=== PATIENT | female | born 1995 | race Caucasian/White ===

== ENCOUNTER 2020-01-16 15:09 | Emergency (ER) | payer SELFPAY ==
--- OUTSIDE RECORDS SUMMARY | 2020-01-16 15:12 | XMS REPORT | Continuity of Care Document ---
:1995 Author Organization [facility] Address [address] [place] [address] Care Team Providers Name Role Phone PHYSICIAN, NO Primary Care Physician Unavailable Allergies, Adverse Reactions, Alerts Allergen Type Severity Reaction Last Verified Status Updated No Known Allergy Unknown August 03, No Active Allergies 2013 Medications Medication Status Dose Units Route Sig Qty Days Start End Instruct ions Date Date Amitriptyline Active 10 ORAL Once Hcl Daily At Bedtim e Ascorbic Acid Active 1000 ORAL Daily Cetirizine-Pse Active 1 ORAL Twice 29 August udoephedrine * Daily , 2019 Needed 10:45pm as needed for Allerg ies Lorazepam Active 1 ORAL Twice 60 08 January Daily , 2019 Needed 12:07am as needed for Anxiet y Metformin Hcl Active 1 ORAL Twice 60 08 August A Day , for 2020 Type 2 1:02am Dm Azithromycin Discontin 500 ORAL Daily 3 July ued for , , Infect 2019 2019 ion 1:02am Ferrous Discontin 1 ORAL Once August Sulfate ued Daily 2019 Hydrocodone-Ac Discontin 1-2 ORAL Every 30 July Decembe etaminophen ued 4 Hrs 29th, r 5th, 5/325MG * As 2013 2015 Needed 7:13am For Pain for Pain Ibuprofen Discontin 400 ORAL Every 30 August ued 4 6th, 4th, Hours 2019 2019 As 10:45pm Needed for Pain Ibuprofen Discontin 1 ORAL Every 30 October ued 6 29th, 6th, Hours 2018 2019 As 7:14am Needed as needed for Pain Ibuprofen Discontin 1 ORAL Every 30 July Decembe ued 6 29th, r 5th, Hours 2013 2015 As 7:13am Needed as needed for Pain Insulin Discontin 10 SUBCUTAN Once Decembe Glargine ued EOUS Daily r 5th, At 2016 Bedtim e Insulin Human Discontin Decembe Nph ued r 5th, 2015 Insulin Human Discontin 0 SUBCUTAN Before Dece mbe Regular ued EOUS Meals r 5th, And At 2016 Bedtim e Discontin 1 ORAL Once August Multivit-Min ued Daily 6th, W/Fe-Fa * 2019 Tramadol/Apap Discontin 1 ORAL Every 15 5 July * ued 4-6 17th, 6th, Hours 2019 2019 As 1:02am Needed as needed for Pain Problems Active Problems Medical Problem Onset Date Status Threatened Active Abdominal pain in Active Urinary tract infection during Active Gestational diabetes mellitus, August 04, 2013 Active delivered Arrest of dilation, delivered, August 04, 2013 Active current hospitalization Acute infective gastroenteritis Active Upper respiratory infection Active Otitis media Active Yeast infection Active UTI (urinary tract infection) Active test positive Active 36 weeks gestation of Active Modified White class B Active pregestational diabetes mellitus Pre-eclampsia affecting childbirth Activ e LGA (large for gestational age) Active fetus affecting mother, delivered Non-reassuring electronic Active monitoring tracing 37 weeks gestation of Active Modified White class B Active pregestational diabetes mellitus Spontaneous onset of labor after 37 Acti ve but before 39 completed weeks gestation with delivery by planned section Previous , delivered, Active current hospitalization Previous delivery affecting Act dorothy , delivered Inactive/Resolved Problems Medical Problem Onset Date Status Gastroenteritis Resolved Abdominal pain Resolved Ear pain, left Resolved Otitis externa Resolved Asthma Resolved Otitis media of right ear Resolved URI (upper respiratory infection) Resolv ed Cervicitis and endocervicitis Resolved Abdominal pain during intrauterine Resol ziggy Chest wall pain Resolved Chest pain Resolved Uncontrolled diabetes mellitus Resolved Type 2 diabetes mellitus Resolved Pharyngitis Resolved URI (upper respiratory infection) Resolv ed Sinus congestion Resolved Headache Resolved Anxiety Resolved Chest pain Resolved Procedures Procedure Date Performed Status X-ray of chest, single view December 13, 2019 completed Relevant Diagnostic Tests and/or Laboratory Data Laboratory Results Test Date/Time Result Interpretation Reference Result Comment Performing Range Site White Blood Count December 8.3 4.0-11.5 [facility] , [address] [place] [id number] 11:32pm Red Blood Count December 4.90 3.80-5.20 [facility] , [address] [place] [address] 11:32pm Hemoglobin December 13.4 10.5-15.7 [facility], [address] [facility] [address] 2019 [facility] [place] [id number] 11:32pm Hematocrit December 42.3 34.0-50.0 [facility], [address] [facility] 2019 [facility] X [id number] 11:32pm Mean Corpuscular October 86.3 86-100 [facility], [address] [facility] Volume 2019 [facility] X [id number] 11:32pm Mean Corpuscular October 27.3 26.2-33.4 [facility], [address] [facility] [address] Hemoglobin [address] [place] [address] 11:32pm Mean Corpuscular October 31.7 30-34 [facility], [address] [facility] Hemoglobin 2019 [facility] [address] Concent 11:32pm Red Cell December 12.5 12.0-15.5 [facility], [address] [facility] Distribution [address] [place] [address] Width 11:32pm Platelet Count December 229 165-450 [facility], [address] [facility] 2019 [facility] X [address] 11:32pm Mean Platelet December 11.9 9.4-12.6 [facility], [address] [facility] Volume 2019 [facility] X [address] 11:32pm Neutrophils (%) December 57.0 44.4-80.1 [facility] , [address] [facility] [address] (Auto) 2019 [facility] X [id number] 11:32pm Immature December 0.4 0.0-0.4 [facility], [address] Granulocyte % 2019 [place] [address] (Auto) 11:32pm Lymphocytes (%) December 31.0 10.0-50.0 [facility] , [address] [facility] [address] (Auto) 2019 [facility] X [address] 11:32pm Monocytes (%) December 8.9 3.6-12.0 [facility], [address] [facility] [address] (Auto) 2019 [facility] X [address] 11:32pm Eosinophils (%) December 2.3 0.0-5.4 [facility] , [address] [facility] [address] (Auto) 2019 [facility] X [address] 11:32pm Basophils (%) December 0.4 0.1-1.2 [facility], [address] [facility] (Auto) 2019 [facility] X [address] 11:32pm Neutrophils # October 4.75 1.56-6.13 [facility], [address] [facility] [address] (Auto) 2019 [facility] X [address] 11:32pm Absolute Immature October 0.0 0.0-0.03 [facility] , [address] Granulocyte (auto 2019 [place] [address] 11:32pm Lymphocytes # December 2.6 1.18-3.74 [facility], [address] [facility] (Auto) 2019 [facility] X [id number] 11:32pm Monocytes # December 0.74 0.24-0.86 [facility], [address] [facility] [address] (Auto) 2019 [facility] X [address] 11:32pm Eosinophils # December 0.19 0.04-0.36 [facility], [address] [facility] (Auto) 2019 [facility] X [address] 11:32pm Basophils # December 0.03 0.01-0.08 [facility], 10 4 [facility] (Auto) 2019 [facility] X [address] 11:32pm Nucleated Red October 0 0-0.2 [facility], [address] [facility] Blood Cells % 2019 [facility] [address] 11:32pm Nucleated Red October 0 0 [facility], [address] [facility] Blood Cells # 2019 [facility] [address] 11:32pm Prothrombin Time December 10.0 10.3-12.3 [facility], [address] [facility] 2019 LEVEL: 1.5 [address] [place] [address] 11:32pm 1.9 times normal range of PT Prothromb Time December 0.93 Recommended [facility], [address] [facility] International 2019 therapeutic [facility] [address] Ratio 11:32pm range for patients receiving warfarin (coumadin) therapy: INR is 2.0 to 3.0Recommended range for patients with mechanical prosthetic heart valves: INR is 2.5 to 3.5 Activated Partial December 25.4 22.5-37.0 [facility] , [address] [facility] Thromboplast Time 2019 [place] [address] 11:32pm Random Glucose December 191 74-106 [facility], [address] [facility] 2019 [facility] X [address] 11:32pm Blood Urea December 12 6-20 [facility], [address] [facility] Nitrogen 2019 [facility] X [address] 11:32pm Serum Osmolality December 277 280-300 [facility], [address] [facility] 2019 [facility] X [address] 11:32pm Creatinine October 0.6 0.50-0.90 [facility], 104 2019 [facility] X [address] 11:32pm Glomerular October > 60.00 GFR RESULTS ARE [facility], [address] [facility] Filtration Rate 2019 REPORTED [place] [address] Calc 11:32pm mL/min/1.73m2.N ormal GFR: >60mL/minModera tely decreased GFR: 30-59 mL/minSeverely decreased GFR: 15-29 mL/minKidney Failure (or Dialysis): <15 mL/minThe calculated eGFR is not valid for patients younger than 18 years or older than 75 years. BUN/Creatinine December 20.0 12-20 [facility], [address] [place] [address] 2019 [facility] X [address] 11:32pm Sodium Level December 136 135-145 [facility], 1 04 2019 [facility] X [address] 11:32pm Potassium Level December 3.8 3.5-5.2 [facility] , [address] [facility] 2019 [facility] X [address] 11:32pm Chloride Level December 100 98-108 [facility], [address] [facility] 2019 [facility] X [address] 11:32pm Carbon Dioxide December 24 21-32 [facility], [address] [place] [address] 2019 [facility] X [address] 11:32pm Anion Gap December 15.8 12-20 [facility], [address] [place], [place] [address] [facility] X [address] 11:32pm Calcium Level December 9.7 8.6-10.0 [facility], [address] [facility] 2019 [facility] X [address] 11:32pm Total Protein October 7.8 6.6-8.7 [facility], [address] [facility] 2019 [facility] X [address] 11:32pm Albumin October 4.3 3.5-5.2 [facility], [address] [facility] 2019 [facility] X [address] 11:32pm Globulin October 3.5 [facility], [address] [place], [place] [address] [facility] X [address] 11:32pm Albumin/Globulin October 1.2 >1.0 [facility], [address] [place] [address] 2019 [facility] X [address] 11:32pm Total Bilirubin October 0.3 0.0-1.2 [facility] , [address] [facility] 2019 [facility] X [address] 11:32pm Aspartate Amino December 23 15-32 [facility] , [address] Transf (AST/SGOT) 2019 [facility] [address] 11:32pm Alanine December 43 0-33 [facility], 104 Aminotransferase 2019 [facility] [address] (ALT/SGPT) 11:32pm PO-Sxm-U-Type December 6 0-125 [facility], 104 Natriuretic 2019 [place] [address] Peptide 11:32pm Total Alkaline December 106 35-105 [facility], 104 Phosphatase 2019 [place] [id number] 11:32pm Creatine Kinase December 32 20-180 [facility] , [address] [facility] 2019 [facility] X 668[address] 11:32pm Troponin I December < 0.30 0.0-0.5 Published [facility], [address] [facility] 2019 clinical [facility] X [address]98 11:32pm studies have shown elevations of cTnI in patients with myocardial injury, as seen in unstable angina pectoris, cardiac contusions, and heart transplants. Elevations have also been seen in patients with rhabdomyolysis and polymyositis.El evated troponin levels point to myocardial injury, but are not necessarily indicative of an ischemic mechanism. The term OK should be used when there is evidence of cardiac damage, as detected by marker proteins in a clinical setting consistent with myocardial ischemia. If the clinical circumstance suggests that an ischemic mechanism is unlikely, other causes of cardiac injury should be considered.For diagnostic purposes, the results should always be assessed in conjunction with the patient's medical history, clinical examination and other findings. Creatine Kinase December < 1.0 0.0-3.6 DIAGNOSTIC [facility], 104 [facility] 2019 CITERIA: [facility] X [id number] 11:32pm CKMB CKMB RELATIVE INDEX -----SUGGESTIVE OF NON-AMI < or = 5 N/AGRAY ZONE (INCONCLUSIVE) > 5 < or = 4SUGGESTIVE OF AMI >5 > 4 Health Concerns Health Concerns may be documented in an alternate section. Advance Directives Advance Directive Response Recorded Date/Time Advance Directives No July 02, 2015 7:5 3pm Advance Directive on File No December 12, 2 020 11:13pm Directive to Physicians/Living No June 7:53pm Will Health Care Proxy No July 02, 2015 7:5 3pm Organ Donor No July 02, 2015 7:5 3pm Medical Power of Furnace [place] No July 01 7:53pm Chief Complaint and Reason for Visit Chief Complaint Chest Pain Reason for Visit [id number] Encounters Encounter Location(s) Arrival/Admit Date Discharge/Depart Date Provider(s) Departed [place] December 13, 2019 December 14, 2019 MYA CAVAZOS Emergency Room [facility] 11:07pm 12:52am MD Ctr Assessments No Assessments Information Available Functional Status No Functional Status information available Goals Goals may be documented in an alternate section. Immunizations Immunization Event Date Not Given Dose Meat Pumper Lot Vac cine Reason Number Number Informatio n Statement (VIS) Deta il TDaP October 10 [place] PS [id number] 2018 Mental Status No Mental Status Information Available Medical Equipment No Medical Equipment Information available Insurance Providers Guarantor Danny Mora Address [address] [place] [id number] Contact Info. Home Phone: Payer Policy Id Coverage Id Subscriber's Subscriber Id Effective E xpiration Name Date Date Medicaid [id number] Danny Mora [id number] Plan of Treatment CALL MD FOR FOLLOW UP ON SUNDAY FOR FURTHER TREATMENT RETURN TO ER IF WORSE Future Tests Future scheduled test information is unavailable Pending Tests Test Name Date ordered Urine Color December 13, 2019 11:25pm Urine Appearance December 13, 2019 11:25pm Urine Glucose (UA) December 13, 2019 11:25pm Urine Bilirubin December 13, 2019 11:25pm Urine Ketones December 13, 2019 11:25pm Urine Specific Morrison December 13, 2019 11:25pm Urine Blood December 13, 2019 11:25pm Urine pH December 13, 2019 11:25pm Urine Protein December 13, 2019 11:25pm Urine Urobilinogen December 13, 2019 11:25pm Urine Nitrate December 13, 2019 11:25pm Urine Leukocyte Esterase December 13, 2019 11:25pm Urine RBC December 13, 2019 11:25pm Urine WBC December 13, 2019 11:25pm Urine Bacteria December 13, 2019 11:25pm Urine Culture Reflexed December 13, 2019 11:25pm Urine Amphetamines Screen December 13, 2019 11:25pm Urine Barbiturates, Quantitative December 13, 2019 11: 25pm Urine Benzodiazepines Screen December 13, 2019 11:25pm Urine Cannabinoids December 13, 2019 11:25pm Urine Cocaine Metabolite December 13, 2019 11:25pm Urine Opiates Screen December 13, 2019 11:25pm Urine Phencyclidine (PCP) Level December 13, 2019 11:2 5pm Methadone Level December 13, 2019 11:25pm Propoxyphene Level December 13, 2019 11:25pm Oxycodone Level December 13, 2019 11:25pm Urine Drug Screen Note December 13, 2019 11:25pm Hepatitis B Surface Antigen February 11, 2016 4:11pm Future Visits Future appointment information is unavailable Referrals to Other Providers Reason for Referral Start Provider Provider Contact Provider Address Referral Date Information PHYSICIAN, NO Future Procedures Future procedure information is unavailable Future Medications Future medication information is unavailable Patient Instructions Nonspecific Chest Pain, Adult Managing Anxiety, Adult Social History Smoking Status Status Date of Observation Never smoked tobacco (finding) December 13, 2019 11:13 pm Observation Status Observation Response Date of Response Hx Physical Abuse No December 13, 2019 11 :13pm Assigned Sex Female Vital Signs Vital Reading Result Collection Date/Time Weight 220 [lb_av] December 13, 2019 11 :13pm BMI (Body Mass Index) 46.0 kg/m2 December 13, 2019 11:13pm
--- OUTSIDE RECORDS SUMMARY | 2020-01-16 15:12 | XMS REPORT | Continuity of Care Document ---
:1995 [facility] t Address [address] [place] [address] Care Team Providers Name Role Phone OEI Attending Clinician Unavailable OEI Admitting Clinician Unavailable Problems Condition Condition Condition Status Onset Resolution Last Treating Co mments Source Name Details Category Date Date Treatment Clinician Date Candidiasi Candidiasi Problem Active 2019-1 [facility] s of skin s of Skin 0-04 da 00:00: Medical 00 Group Initiation Initiation Problem Active 2019-1 [facility] of [place] of [place]ot 0-04 da contracept Contracept 00:00: Me dical ion done ion Done 00 Group Type 2 Type 2 Problem Active [facility] diabetes Diabetes 11-26 da mellitus Mellitus 00:00: Medica l 00 Group Acute Acute Problem Active [facility] cystitis Cystitis 11-26 da 00:00: Medical 00 Group Problem Active [facility] depression Depression 11-26 da 00:00: Medical 00 Group Decreased Decreased Problem Active [facility] 11-26 da 00:00: Medical Group Candidal Candidal Problem Active [facility] vulvovagin Vulvovagin 2- da itis itis 00:00: Medical Group History of History of Problem Active [facility] pre-eclamp Pre-eclamp 2- da primo primo 00:00: Medical 00 Group Pre-existi Pre-existi Problem Active [facility] ng type 2 ng Type 2 da diabetes Diabetes Medica l mellitus Mellitus Group in in Uterine Uterine Problem Active [facility] scar from Scar from da previous Previous Medica l surgery in Surgery in Gr oup , , childbirth Childbirth and the and the puerperium Puerperium with with problem Problem Allergies, Adverse Reactions, Alerts This patient has no known allergies or adverse reactions. Social History Smoking Status Start Date Stop Date Source Never Smoker [facility] Medications Ordered Filled Start Stop Current Ordering Indication Dosage Frequency Signature Comments Components Source Medication Medication Date Date Medication? Clinician (SIG) Name Name acetaminoph acetaminoph No acetaminop [facility] en 300 en 300 hen 300 da mg-codeine mg-codeine mg-codeine Medical 30 mg 30 mg 30 mg Group tablet 1-2 tablet 1-2 tablet 1-2 p.o. q 6 p.o. q 6 p.o. q 6 hrs PRN hrs PRN hrs PRN pain pain pain Aspirin Low Aspirin Low No 1 Q1D Aspirin [facility] Dose 81 mg Dose 81 mg Low Dose da tablet,ras tablet,ras 81 mg Medical yed release yed release tablet,del Group Take 1 Take 1 ayed tablet tablet release every day every day Take 1 by oral by oral tablet route. route. every day by oral route. citalopram citalopram No 1 Q1D citalopram [facility] 20 mg 20 mg 20 mg da tablet Take tablet Take tablet Medical 1 tablet 1 tablet Take 1 Group every day every day tablet by oral by oral every day route. route. by oral route. ferrous ferrous No 1 Q1D ferrous [facility] gluconate gluconate gluconate da 240 mg (27 240 mg (27 240 mg (27 Medical mg iron) mg iron) mg iron) Manuel up tablet Take tablet Take tablet 1 tablet 1 tablet Take 1 every day every day tablet by oral by oral every day route. route. by oral route. fluconazole fluconazole No fluconazol [facility] 100 mg 100 mg e 100 mg da tablet Take tablet Take tablet Medical 1 tablet 1 tablet Take 1 Group every day every day tablet by oral by oral every day route for 3 route for 3 by oral days. days. route for 3 days. fluconazole fluconazole No fluconazol [facility] 200 mg 200 mg e 200 mg da tablet Take tablet Take tablet Medical 1 tablet 1 tablet Take 1 Group every day every day tablet by oral by oral every day route for 3 route for 3 by oral days. days. route for 3 days. glyburide glyburide No glyburide [facility] 2.5 mg 2.5 mg 2.5 mg da tablet Take tablet Take tablet Medical 1 tablet 1 tablet Take 1 Group twice a day twice a day tablet by oral by oral twice a route with route with day by meals. meals. oral route with meals. glyburide 5 glyburide 5 No glyburide [facility] mg tablet mg tablet 5 mg da Take 1 Take 1 tablet Medical tablet tablet Take 1 Group twice a day twice a day tablet by oral by oral twice a route. route. day by oral route. ibuprofen ibuprofen No ibuprofen [facility] 800 mg 800 mg 800 mg da tablet tablet tablet Medical Group metronidazo metronidazo No metronidaz [facility] le 500 mg le 500 mg ole 500 mg da tablet Take tablet Take tablet Medical 1 tablet 1 tablet Take 1 Group twice a day twice a day tablet by oral by oral twice a route for 7 route for 7 day by days. days. oral route for 7 days. nitrofurant nitrofurant No nitrofuran [facility] oin oin toin da monohydrate monohydrate monohydrat Medical /macrocryst /macrocryst e/macrocry Group als 100 mg als 100 mg stals 100 capsule capsule mg capsule Take 1 Take 1 Take 1 capsule capsule capsule twice a day twice a day twice a by oral by oral day by route for 5 route for 5 oral route days. days. for 5 days. nystatin nystatin No nystatin [facility] 100,000 100,000 100,000 da unit/gram unit/gram unit/gram Medical topical topical topical Group cream APPLY cream APPLY cream TO THE TO THE APPLY TO AFFECTED AFFECTED THE AREA(S) BY AREA(S) BY AFFECTED TOPICAL TOPICAL AREA(S) BY ROUTE 2 ROUTE 2 TOPICAL TIMES PER TIMES PER ROUTE 2 DAY for 10 DAY for 10 TIMES PER days. days. DAY for 10 days. omeprazole omeprazole No omeprazole [facility] 40 mg 40 mg 40 mg da capsule,del capsule,del capsule,de Medical ayed ayed layed Group release release release No [facility] Gummy Gummy Gummy da Medical Group Reglan 10 Reglan 10 No 1 QID Reglan 10 [facility] mg tablet mg tablet mg tablet da Take 1 Take 1 Take 1 Medical tablet 4 tablet 4 tablet 4 Manuel up times a day times a day times a by oral by oral day by route for route for oral route 14 days. 14 days. for 14 days. True Metrix True Metrix No True [facility] Glucose Glucose Metrix da Meter Meter Glucose Medical Meter Group True Metrix True Metrix No True [facility] Glucose Glucose Metrix da Test Strip Test Strip Glucose Medical Test Strip Group Vitafol-One Vitafol-One No 1capsul Q1D Vitafol-On [facility] 29 mg 29 mg e(s) e 29 mg da iron-1 iron-1 iron-1 Medical mg-200 mg mg-200 mg mg-200 mg Group capsule capsule capsule Take 1 Take 1 Take 1 capsule capsule capsule every day every day every day by oral by oral by oral route at route at route at bedtime. bedtime. bedtime. Vital Signs Vital Name Observation Time Observation Value Comments Source BP Diastolic 2018-12-13 00:00:00 75 mm[Hg] [facility] Height 2018-12-13 00:00:00 58 [facility] BMI (Body Mass 2018-12-13 00:00:00 42.2 kg/m2 [facility] Medical Index) Group BP Systolic 2018-12-13 00:00:00 120 mm[Hg] [facility] Body Weight 2018-12-13 00:00:00 202 [lb_av] [facility] BP Diastolic 2018-11-26 00:00:00 71 mm[Hg] [facility] Height 2018-11-26 00:00:00 58 [in_i] [facility] BMI (Body Mass 2018-11-26 00:00:00 41.2 kg/m2 [facility] Medical Index) Group BP Systolic 2018-11-26 00:00:00 129 mm[Hg] [facility] Body Weight 2018-11-26 00:00:00 197.3 [lb_av] [facility] BP Diastolic 2018-11-05 00:00:00 92 mm[Hg] [facility] Height 2018-11-05 00:00:00 58 [in_i] [facility] BMI (Body Mass 2018-11-05 00:00:00 45.1 kg/m2 [facility] Medical Index) Group BP Systolic 2018-11-05 00:00:00 126 mm[Hg] [facility] Body Weight 2018-11-05 00:00:00 215.9 [lb_av] [facility] BP Diastolic 2018-10-29 00:00:00 88 mm[Hg] [facility] Height 2018-10-29 00:00:00 58 [in_i] [facility] BMI (Body Mass 2018-10-29 00:00:00 45.2 kg/m2 [facility] Medical Index) Group BP Systolic 2018-10-29 00:00:00 128 mm[Hg] [facility] Body Weight 2018-10-29 00:00:00 216.1 [lb_av] [facility] BP Diastolic 2018-10-15 00:00:00 81 mm[Hg] [facility] Height 2018-10-15 00:00:00 58 [in_i] [facility] BMI (Body Mass 2018-10-15 00:00:00 43.8 kg/m2 [facility] Medical Index) Group BP Systolic 2018-10-15 00:00:00 128 mm[Hg] [facility] Body Weight 2018-10-15 00:00:00 209.4 [lb_av] [facility] BP Diastolic 2018-09-30 00:00:00 75 mm[Hg] [facility] Height 2018-09-30 00:00:00 58 [in_i] [facility] BMI (Body Mass 2018-09-30 00:00:00 43.5 kg/m2 [facility] Medical Index) Group BP Systolic 2018-09-30 00:00:00 122 mm[Hg] [facility] Body Weight 2018-09-30 00:00:00 208 [lb_av] [facility] BP Diastolic 2018-09-13 00:00:00 73 mm[Hg] [facility] Height 2018-09-13 00:00:00 58 [in_i] [facility] BMI (Body Mass 2018-09-13 00:00:00 43.2 kg/m2 [facility] Medical Index) Group BP Systolic 2018-09-13 00:00:00 123 mm[Hg] [facility] Body Weight 2018-09-13 00:00:00 206.6 [lb_av] [facility] BP Diastolic 2018-08-30 00:00:00 78 mm[Hg] [facility] Height 2018-08-30 00:00:00 58 [in_i] [facility] BMI (Body Mass 2018-08-30 00:00:00 43.3 kg/m2 [facility] Medical Index) Group BP Systolic 2018-08-30 00:00:00 133 mm[Hg] [facility] Body Weight 2018-08-30 00:00:00 207 [lb_av] [facility] BP Diastolic 2018-08-16 00:00:00 74 mm[Hg] [facility] Height 2018-08-16 00:00:00 58 [in_i] [facility] BMI (Body Mass 2018-08-16 00:00:00 43.8 kg/m2 [facility] Medical Index) Group BP Systolic 2018-08-16 00:00:00 125 mm[Hg] [facility] Body Weight 2018-08-16 00:00:00 209.8 [lb_av] [facility] BP Diastolic 2018-06-10 00:00:00 75 mm[Hg] [facility] Height 2018-06-10 00:00:00 58 [in_i] [facility] BMI (Body Mass 2018-06-10 00:00:00 42.2 kg/m2 [facility] Medical Index) Group BP Systolic 2018-06-10 00:00:00 136 mm[Hg] [facility] Body Weight 2018-06-10 00:00:00 202 [lb_av] [facility] BP Diastolic 2018-05-17 00:00:00 77 mm[Hg] [facility] Height 2018-05-17 00:00:00 58 [in_i] [facility] BMI (Body Mass 2018-05-17 00:00:00 42.2 kg/m2 [facility] Index) Group BP Systolic 2018-05-17 00:00:00 128 mm[Hg] [facility] Body Weight 2018-05-17 00:00:00 202 [lb_av] [facility] BP Diastolic 2018-05-02 00:00:00 79 mm[Hg] [facility] Height 2018-05-02 00:00:00 58 [in_i] [facility] BMI (Body Mass 2018-05-02 00:00:00 42 kg/m2 [facility] Medical Index) Group BP Systolic 2018-05-02 00:00:00 165 mm[Hg] [facility] Body Weight 2018-05-02 00:00:00 201 [lb_av] [facility] Procedures Procedure Date / Time Performing Clinician Source Performed US(FBP)W/0 NON STRESS 2018-11-05 00:00:00 [facility] TEST Group US, obstetric, limited 2018-10-29 00:00:00 [facility] US, obstetric, limited 2018-09-30 00:00:00 [facility] ULTRASOUND REPEAT 2018-08-30 00:00:00 [facility] unlisted imaging order 2018-08-16 00:00:00 [facility] US, obstetric, limited 2018-06-10 00:00:00 [facility] ULTRASOUND, 2018-06-10 00:00:00 [facility] UTERUS REAL TIME WITH Group IMAGE DOC, AND MATERNAL EVAL PLUS DETAILED ANATOMIC EXAMINATION, TRANSABDOMINAL APPROACH; SINGLE OR FIRST GESTATION US, obstetric, limited 2018-05-17 00:00:00 [facility] ULTRASOUND, 2018-05-02 00:00:00 [facility] UTERUS REAL TIME WITH Group IMAGE DOCUMENTAITON, TRANSVAGINAL Delivery 2016-02-11 00:00:00 [facility] Caesarean Section 2013-08-04 00:00:00 [facility] Plan of Care Planned Activity Planned Date Details Comments Source Diagnostic Test 2018-12-13 test, [facility] Pending 00:00:00 urine [code = Group test, urine] Encounters Start End Encounter Admission Attending Care Care Encounter Source Date/Time Date/Time Type Type Clinicians Facility Department ID 2018-12-13 2018-12-13 Linda ALFARO [place] - [id number] [facility] 00:00:00 00:00:00 Discovery trevor Forrester WHNP: [address] [place] [phone] , Ph. [phone] 2018-11-26 2018-11-26 Chase AL[place]ARO [place] - [id number] [facility] 00:00:00 00:00:00 [facility] trevor Buckley MD: [address] [place] [address] , Ph. [phone] 2018-11-05 2018-11-05 Chase ALFARO [place] - [id number] [facility] 00:00:00 00:00:00 [facility] trevor Buckley MD: [address] [place] [address] , Ph. [phone] 2018-10-29 2018-10-29 Chase ALFARO [place] - [id number] [facility] 00:00:00 00:00:00 Discovery trevor Buckley MD: [address] [place] [address] , Ph. [phone] 2018-10-15 2018-10-15 Linda Swenson [facility] [place] - [id number] [place] 00:00:00 00:00:00 Discovery Timothy Forrester: [facility] [address] [address] , Ph. [phone] 2018-09-30 2018-09-30 Lin FLOWERS [place] - [id number] [facility] 00:00:00 00:00:00 Subhash Sapp [facility] l MD: [address] [place] [phone] , Ph. [phone] 2018-09-13 2018-09-13 Chase ALFARO [place] - [id number] [facility] 00:00:00 00:00:00 Discovery rtevor Buckley MD: [address] [place] [phone] , Ph. [phone] 2018-08-30 2018-08-30 Chase ALFARO [place] - [id number] [facility] 00:00:00 00:00:00 Discovery trevor Buckley MD: [address] [place] [phone] , Ph. [phone] 2018-08-16 2018-08-16 Linda Swenson [place] - [id number] [place] 00:00:00 00:00:00 Discovery Timothy Forrester: [facility] [address] [address], [place] [address] , Ph. [phone] 2018-06-10 2018-06-10 Lin ALFARO [place] - [id number] [facility] 00:00:00 00:00:00 Subhash Sapp [facility] l MD: [address] [place] [address] , Ph. [phone] 2018-05-17 2018-05-17 Chase ALFARO [place] - [id number] [facility] 00:00:00 00:00:00 Discovery trevor Buckley MD: [address] [place] [address], [place] - [address], [place] [address] , Ph. [phone] 2018-05-02 2018-05-02 Chase ALFARO [place] - [id number] [facility] 00:00:00 00:00:00 Discovery trevor Buckley MD: [address] [place] [address], [facility] [address], [place] [address] , Ph. [phone] 2017-10-19 2017-10-19 Emergency E OEI, [facility] [id number] 16:41:00 17:20:00 [facility] Results Test Description Test Time Test Comments Results Result Comments Source test, urine 2018-12-13 15:26:12 Test Item Value Reference Range Interpretation Comme nts Test (test code = Test) negative [facility] (dipstick) panel - [id number] 14:39:00 Test Item Value Reference Range Interpretation Comments Leukocytes (test code = Leukocytes) Moderate Nitrite (test code = Nitrite) negative Urobilinogen (test code = .2 Urobilinogen) Protein (test code = Protein) Negative pH (test code = pH) 7.0 Blood (test code = Blood) Moderate Specific [place] (test code = 1.020 Specific [place]) Ketone (test code = Ketone) Negative Bilirubin (test code = Bilirubin) Negative Glucose (test code = Glucose) Negative Appearance (test code = Appearance) Clear Color (test code = Color) Yellow [facility] macro (dipstick) panel - [id number] 14:39:00 Test Item Value Reference Range Interpretation Comments Leukocytes (test code = Leukocytes) Moderate Nitrite (test code = Nitrite) negative Urobilinogen (test code = .2 Urobilinogen) Protein (test code = Protein) Negative pH (test code = pH) 7.0 Blood (test code = Blood) Moderate Specific [place] (test code = 1.020 Specific [place]) Ketone (test code = Ketone) Negative Bilirubin (test code = Bilirubin) Negative Glucose (test code = Glucose) Negative Appearance (test code = Appearance) Clear Color (test code = Color) Yellow [facility] identified in Urine by [id number] 01:17:00Bacteria Ur [facility] W Auto Differential panel - [id number] 03:00:00 Test Item Value Reference Range Interpretation Comments white blood count (test code = 9.1 K/uL 4.0-11.5 white blood count) red blood count (test code = red 3.09 M/uL 3.80-5.20 L blood count) hemoglobin (test code = 8.7 g/dL 10.5-15.7 L hemoglobin) hematocrit (test code = 27.9 % 34.0-50.0 L hematocrit) Erythrocyte mean corpuscular 90.3 fL 86-100 volume [Entitic volume] (test code = 36652-1) mean corpuscular hemoglobin (test 28.2 pg 26.2-33.4 code = mean corpuscular hemoglobin) mean corpuscular HGB conc (test 31.2 g/dL 30-34 code = mean corpuscular HGB conc) red cell distribution width (test 14.9 % 12.0-15.5 code = red cell distribution width) platelet count (test code = 127 K/uL 165-450 L platelet count) mean platelet volume (test code = 12.2 fL 9.4-12.6 mean platelet volume) Neutrophils.segmented/100 72.4 % 44.4-80.1 leukocytes in Blood (test code = 60174-2) Ig% (test code = Ig%) 0.3 % 0.0-0.4 lymphocyte% (test code = 18.6 % 10.0-50.0 lymphocyte%) mono % (test code = mono %) 7.8 % 3.6-12.0 eos % (test code = eos %) 0.7 % 0.0-5.4 Basophils/100 leukocytes in 0.2 % 0.1-1.2 Unspecified specimen (test code = 99161-9) absolute neutrophil count (test 6.61 K/uL 1.56-6.13 H code = absolute neutrophil count) Ig# (test code = Ig#) 0.0 K/uL 0.0-0.03 Lymphocytes [#/volume] in 1.7 K/uL 1.18-3.74 Unspecified specimen by Automated count (test code = 87941-2) mono # (test code = mono #) 0.71 K/uL 0.24-0.86 eos # (test code = eos #) 0.06 K/uL 0.04-0.36 basophil # (test code = basophil 0.02 K/uL 0.01-0.08 #) NRBC% (test code = NRBC%) 0 /100 WBC 0-0.2 NRBC# (test code = NRBC#) 0 K/uL [facility] W Auto Differential panel - [id number] 04:26:00 Test Item Value Reference Range Interpretation Comments white blood count (test code = 11.2 K/uL 4.0-11.5 white blood count) red blood count (test code = red 3.34 M/uL 3.80-5.20 L blood count) hemoglobin (test code = 9.5 g/dL 10.5-15.7 L hemoglobin) hematocrit (test code = 29.5 % 34.0-50.0 L hematocrit) Erythrocyte mean corpuscular 88.3 fL 86-100 volume [Entitic volume] (test code = 51072-8) mean corpuscular hemoglobin (test 28.4 pg 26.2-33.4 code = mean corpuscular hemoglobin) mean corpuscular HGB conc (test 32.2 g/dL 30-34 code = mean corpuscular HGB conc) red cell distribution width (test 14.5 % 12.0-15.5 code = red cell distribution width) platelet count (test code = 131 K/uL 165-450 L platelet count) mean platelet volume (test code = 12.5 fL 9.4-12.6 mean platelet volume) Neutrophils.segmented/100 80.7 % 44.4-80.1 H leukocytes in Blood (test code = 39115-3) Ig% (test code = Ig%) 0.5 % 0.0-0.4 H lymphocyte% (test code = 11.1 % 10.0-50.0 lymphocyte%) mono % (test code = mono %) 7.5 % 3.6-12.0 eos % (test code = eos %) 0 % 0.0-5.4 Basophils/100 leukocytes in 0.2 % 0.1-1.2 Unspecified specimen (test code = 47837-7) absolute neutrophil count (test 9.01 K/uL 1.56-6.13 H code = absolute neutrophil count) Ig# (test code = Ig#) 0.1 K/uL 0.0-0.03 H Lymphocytes [#/volume] in 1.2 K/uL 1.18-3.74 Unspecified specimen by Automated count (test code = 26648-7) mono # (test code = mono #) 0.84 K/uL 0.24-0.86 eos # (test code = eos #) 0.00 K/uL 0.04-0.36 L basophil # (test code = basophil 0.02 K/uL 0.01-0.08 #) NRBC% (test code = NRBC%) 0 /100 WBC 0-0.2 NRBC# (test code = NRBC#) 0 K/uL [facility] and Indirect antibody screen panel - Blood 2018-11-05 12:58:00 Test Item Value Reference Range Interpretation Comments Rh [Type] in Blood (test code = 4+ 18498-9) ABO and Rh group panel - Blood A positive (test code = 49257-3) [facility] virus surface Ag [Presence] in Serum 2018-11-05 12:58:00 Test Item Value Reference Range Interpretation Comments .hepatitis B surface antigen (test negative negative code = .hepatitis B surface antigen) [facility]Reagin Ab [Presence] in Serum by [id number] 12:58:00 Test Item Value Reference Range Interpretation Comments Reagin Ab [Presence] in Serum by nonreactive nonreactive RPR (test code = 05848-8) [facility]inalysis macro (dipstick) panel - [id number] 10:13:00 Test Item Value Reference Range Interpretation Comments Leukocytes (test code = Trace Leukocytes) Nitrite (test code = negative Nitrite) Urobilinogen (test code = .2 Urobilinogen) Protein (test code = Negative Protein) pH (test code = pH) 6.0 Blood (test code = Blood) Hemolyzed: Trace Specific [place] (test code 1.025 = Specific [place]) Ketone (test code = Ketone) Moderate Bilirubin (test code = Negative Bilirubin) Glucose (test code = Negative Glucose) Appearance (test code = Clear Appearance) Color (test code = Color) Yellow [facility]inalysis macro (dipstick) panel - [id number] 10:13:00 Test Item Value Reference Range Interpretation Comments Leukocytes (test code = Trace Leukocytes) Nitrite (test code = negative Nitrite) Urobilinogen (test code = .2 Urobilinogen) Protein (test code = Negative Protein) pH (test code = pH) 6.0 Blood (test code = Blood) Hemolyzed: Trace Specific [place] (test code 1.025 = Specific [place]) Ketone (test code = Ketone) Moderate Bilirubin (test code = Negative Bilirubin) Glucose (test code = Negative Glucose) Appearance (test code = Clear Appearance) Color (test code = Color) Yellow [facility] HospitalGlucose [Mass/volume] in Capillary [id number] 10:11:00 Test Item Value Reference Range Interpretation Comments GLU (test code = GLU) 97 [facility]Glucose [Mass/volume] in Capillary [id number] 10:11:00 Test Item Value Reference Range Interpretation Comments GLU (test code = GLU) 97 [facility] Biophysical profile panel [id number] 09:48:00 Test Item Value Reference Range Interpretation Comments Amniotic Fluid Index (test code = 2 (14.4) Amniotic Fluid Index) Tone (test code = Tone) 2 Breathing (test code = 2 Breathing) Movement (test code = 2 Movement) Non-Stress Test (test code = 2 Non-Stress Test) [facility] [id number] 09:48:00 Test Item Value Reference Range Interpretation Comments Amniotic Fluid Index (test code = 2 (14.4) Amniotic Fluid Index) Tone (test code = Tone) 2 Breathing (test code = 2 Breathing) Movement (test code = 2 Movement) Non-Stress Test (test code = 2 Non-Stress Test) [facility] Auto Differential panel - [id number] 09:41:00 Test Item Value Reference Range Interpretation Comments white blood count (test code = 6.8 K/uL 4.0-11.5 white blood count) red blood count (test code = red 4.27 M/uL 3.80-5.20 blood count) hemoglobin (test code = 11.8 g/dL 10.5-15.7 hemoglobin) hematocrit (test code = 36.8 % 34.0-50.0 hematocrit) Erythrocyte mean corpuscular 86.2 fL 86-100 volume [Entitic volume] (test code = 75940-6) mean corpuscular hemoglobin (test 27.6 pg 26.2-33.4 code = mean corpuscular hemoglobin) mean corpuscular HGB conc (test 32.1 g/dL 30-34 code = mean corpuscular HGB conc) red cell distribution width (test 14.5 % 12.0-15.5 code = red cell distribution width) platelet count (test code = 152 K/uL 165-450 L platelet count) mean platelet volume (test code = 12.9 fL 9.4-12.6 H mean platelet volume) Neutrophils.segmented/100 71.7 % 44.4-80.1 leukocytes in Blood (test code = 94854-8) Ig% (test code = Ig%) 0.1 % 0.0-0.4 lymphocyte% (test code = 18.3 % 10.0-50.0 lymphocyte%) mono % (test code = mono %) 9.0 % 3.6-12.0 eos % (test code = eos %) 0.6 % 0.0-5.4 Basophils/100 leukocytes in 0.3 % 0.1-1.2 Unspecified specimen (test code = 25652-2) absolute neutrophil count (test 4.84 K/uL 1.56-6.13 code = absolute neutrophil count) Ig# (test code = Ig#) 0.0 K/uL 0.0-0.03 Lymphocytes [#/volume] in 1.2 K/uL 1.18-3.74 Unspecified specimen by Automated count (test code = 13367-0) mono # (test code = mono #) 0.61 K/uL 0.24-0.86 eos # (test code = eos #) 0.04 K/uL 0.04-0.36 basophil # (test code = basophil 0.02 K/uL 0.01-0.08 #) NRBC% (test code = NRBC%) 0 /100 WBC 0-0.2 NRBC# (test code = NRBC#) 0 K/uL [facility]dipstick[facility] - [id number] 10:55:43 Test Item Value Reference Range Interpretation Comments Leukocytes (test code = Leukocytes) Small Nitrite (test code = Nitrite) negative Urobilinogen (test code = .2 Urobilinogen) Protein (test code = Protein) Negative pH (test code = pH) 7.0 Blood (test code = Blood) Negative Specific [place] (test code = 1.015 Specific [place]) Ketone (test code = Ketone) Trace Bilirubin (test code = Bilirubin) Negative Glucose (test code = Glucose) Negative Appearance (test code = Appearance) Clear Color (test code = Color) Yellow [facility] panel - [id number] 10:55:43 Test Item Value Reference Range Interpretation Comments Leukocytes (test code = Leukocytes) Small Nitrite (test code = Nitrite) negative Urobilinogen (test code = .2 Urobilinogen) Protein (test code = Protein) Negative pH (test code = pH) 7.0 Blood (test code = Blood) Negative Specific [place] (test code = 1.015 Specific [place]) Ketone (test code = Ketone) Trace Bilirubin (test code = Bilirubin) Negative Glucose (test code = Glucose) Negative Appearance (test code = Appearance) Clear Color (test code = Color) Yellow [facility]stick[facility] panel - [id number] 10:55:43 Test Item Value Reference Range Interpretation Comments Leukocytes (test code = Leukocytes) Small Nitrite (test code = Nitrite) negative Urobilinogen (test code = .2 Urobilinogen) Protein (test code = Protein) Negative pH (test code = pH) 7.0 Blood (test code = Blood) Negative Specific [place] (test code = 1.015 Specific [place]) Ketone (test code = Ketone) Trace Bilirubin (test code = Bilirubin) Negative Glucose (test code = Glucose) Negative Appearance (test code = Appearance) Clear Color (test code = Color) Yellow [facility]Gl[facility] [Mass/volume] in Capillary [id number] 10:49:07 Test Item Value Reference Range Interpretation Comments GLU (test code = GLU) 73 [facility]Gl[facility] [Mass/volume] in Capillary [id number] 10:49:07 Test Item Value Reference Range Interpretation Comments GLU (test code = GLU) 73 [facility]Gl[facility] [Mass/volume] in Capillary [id number] 10:49:07 Test Item Value Reference Range Interpretation Comments GLU (test code = GLU) 73 [facility] complete panel - [id number] 00:00:00 Test Item Value Reference Range Interpretation Comments Color of Urine by Auto (test code yellow = 73455-8) Appearance of Urine (test code = SL cloudy clear A 5767-9) Glucose [Presence] in Urine by negative negative Automated test strip (test code = 29974-7) Bilirubin.total [Mass/volume] in negative negative Urine (test code = 1978-6) Ketones [Mass/volume] in Urine by =3 negative H Automated test strip (test code = 81633-9) Specific gravity of Urine by 1.025 1.003-1.030 Automated test strip (test code = 46372-8) blood urine (test code = blood negative negative urine) pH of Urine (test code = 2756-5) 6.000 5-9 protein urine (UA) (test code = trace negative protein urine (UA)) Urobilinogen [Presence] in Urine =2.0 0.2-1.0 H (test code = 83409-3) Nitrite [Presence] in Urine by negative negative Test strip (test code = 5802-4) Leukocyte esterase [Presence] in =4 negative H Urine by Automated test strip (test code = 77150-6) Erythrocytes [#/volume] in Urine =1-5 0-5 by Automated count (test code = 798-9) Leukocytes [#/area] in Urine >50 0-5 H sediment by Automated count (test code = 42633-2) Epithelial cells [Presence] in =6-10 0-5 Urine sediment by Light microscopy (test code = 90311-6) Bacteria identified in Urine by moderate (2 none detect H Culture (test code = 630-4) Casts [#/area] in Urine sediment =15-19 none detect H by Automated count (test code = 85991-9) urine culture added? (test code = yes urine culture added?) [facility] by [id number] 00:00:00[facility]acteria Ur [facility] Urine 2018-10-26 00:00:00 Test Item Value Reference Range Interpretation Comments Color of Urine by Auto (test code yellow = 76930-3) Appearance of Urine (test code = SL cloudy clear A 5767-9) Glucose [Presence] in Urine by negative negative Automated test strip (test code = 14301-5) Bilirubin.total [Mass/volume] in negative negative Urine (test code = 1978-6) Ketones [Mass/volume] in Urine by =3 negative H Automated test strip (test code = 89518-9) Specific gravity of Urine by 1.025 1.003-1.030 Automated test strip (test code = 89061-4) blood urine (test code = blood negative negative urine) pH of Urine (test code = 2756-5) 6.000 5-9 protein urine (UA) (test code = trace negative protein urine (UA)) Urobilinogen [Presence] in Urine =2.0 0.2-1.0 H (test code = 19946-3) Nitrite [Presence] in Urine by negative negative Test strip (test code = 5802-4) Leukocyte esterase [Presence] in =4 negative H Urine by Automated test strip (test code = 30648-4) Erythrocytes [#/volume] in Urine =1-5 0-5 by Automated count (test code = 798-9) Leukocytes [#/area] in Urine >50 0-5 H sediment by Automated count (test code = 67566-3) Epithelial cells [Presence] in =6-10 0-5 Urine sediment by Light microscopy (test code = 02875-8) Bacteria identified in Urine by moderate (2 none detect H Culture (test code = 630-4) Casts [#/area] in Urine sediment =15-19 none detect H by Automated count (test code = 61571-3) urine culture added? (test code = yes urine culture added?) [facility] GroupBacteria identified in Urine by [id number] 00:00:00Bacteria Ur [facility] GroupUr[facility] complete [facility] - Urine 2018-10-26 00:00:00 Test Item Value Reference Range Interpretation Comments Color of Urine by Auto (test code yellow = 44950-9) Appearance of Urine (test code = SL cloudy clear A 5767-9) Glucose [Presence] in Urine by negative negative Automated test strip (test code = 17841-3) Bilirubin.total [Mass/volume] in negative negative Urine (test code = 1978-6) Ketones [Mass/volume] in Urine by =3 negative H Automated test strip (test code = 43934-5) Specific gravity of Urine by 1.025 1.003-1.030 Automated test strip (test code = 42581-2) blood urine (test code = blood negative negative urine) pH of Urine (test code = 2756-5) 6.000 5-9 protein urine (UA) (test code = trace negative protein urine (UA)) Urobilinogen [Presence] in Urine =2.0 0.2-1.0 H (test code = 50491-7) Nitrite [Presence] in Urine by negative negative Test strip (test code = 5802-4) Leukocyte esterase [Presence] in =4 negative H Urine by Automated test strip (test code = 98474-9) Erythrocytes [#/volume] in Urine =1-5 0-5 by Automated count (test code = 798-9) Leukocytes [#/area] in Urine >50 0-5 H sediment by Automated count (test code = 30243-9) Epithelial cells [Presence] in =6-10 0-5 Urine sediment by Light microscopy (test code = 21782-1) Bacteria identified in Urine by moderate (2 none detect H Culture (test code = 630-4) Casts [#/area] in Urine sediment =15-19 none detect H by Automated count (test code = 03468-8) urine culture added? (test code = yes urine culture added?) [facility] GroupBacteria identified in Urine by [id number] 00:00:00Bacteria Ur [facility] GroupUrinalysis macro (dipstick) panel - [id number] 16:26:33 Test Item Value Reference Range Interpretation Comments Leukocytes (test code = Leukocytes) Trace Nitrite (test code = Nitrite) negative Urobilinogen (test code = .2 Urobilinogen) Protein (test code = Protein) Negative pH (test code = pH) 6.0 Blood (test code = Blood) Negative Specific [place] (test code = 1.020 Specific [place]) Ketone (test code = Ketone) Moderate Bilirubin (test code = Bilirubin) Negative Glucose (test code = Glucose) Negative Appearance (test code = Appearance) Clear Color (test code = Color) Yellow [facility]Ur[facility] macro (dipstick) panel - [id number] 16:26:33 Test Item Value Reference Range Interpretation Comments Leukocytes (test code = Leukocytes) Trace Nitrite (test code = Nitrite) negative Urobilinogen (test code = .2 Urobilinogen) Protein (test code = Protein) Negative pH (test code = pH) 6.0 Blood (test code = Blood) Negative Specific [place] (test code = 1.020 Specific [place]) Ketone (test code = Ketone) Moderate Bilirubin (test code = Bilirubin) Negative Glucose (test code = Glucose) Negative Appearance (test code = Appearance) Clear Color (test code = Color) Yellow [facility]Ur[facility] macro (dipstick) panel - [id number] 16:26:33 Test Item Value Reference Range Interpretation Comments Leukocytes (test code = Leukocytes) Trace Nitrite (test code = Nitrite) negative Urobilinogen (test code = .2 Urobilinogen) Protein (test code = Protein) Negative pH (test code = pH) 6.0 Blood (test code = Blood) Negative Specific [place] (test code = 1.020 Specific [place]) Ketone (test code = Ketone) Moderate Bilirubin (test code = Bilirubin) Negative Glucose (test code = Glucose) Negative Appearance (test code = Appearance) Clear Color (test code = Color) Yellow [facility] HospitalHemoglobin A1c [Mass/volume] in [id number] 02:58:00 Test Item Value Reference Range Interpretation Comments Hemoglobin A1c [Mass/volume] in Blood 5.9 % 4.0-6.0 (test code = 60142-7) [facility] GroupHemoglobin A1c [Mass/volume] in [id number] 00:00:00 Test Item Value Reference Range Interpretation Comments Hemoglobin A1c [Mass/volume] in Blood 5.9 % 4.0-6.0 (test code = 04055-1) [facility] GroupHemoglobin A1c [Mass/volume] in [id number] 00:00:00 Test Item Value Reference Range Interpretation Comments Hemoglobin A1c [Mass/volume] in Blood 5.9 % 4.0-6.0 (test code = 58998-3) [facility] GroupColony count [#/volume] in [id number] 00:00:00 Test Item Value Reference Range Interpretation Comments group B streptococcus (gbs) by negative real-time PCR (test code = group B streptococcus (gbs) by real-time PCR) escherichia coli by real-time PCR negative (test code = escherichia coli by real-time PCR) proteus mirabilis by real-time PCR negative (test code = proteus mirabilis by real-time PCR) staphylococcus saprophyticus by negative real-time PCR (test code = staphylococcus saprophyticus by real-time PCR) enterococcus faecalis by real-time negative PCR (test code = enterococcus faecalis by real-time PCR) enterococcus faecium by real-time negative PCR (test code = enterococcus faecium by real-time PCR) klebsiella species by real-time PCR negative (reflex to speciation by pyrosequencing) (test code = klebsiella species by real-time PCR (reflex to speciation by pyrosequencing)) pseudomonas aeruginosa by real-time negative PCR (test code = pseudomonas aeruginosa by real-time PCR) [facility] GroupCol[facility] count [#/volume] in [id number] 00:00:00 Test Item Value Reference Range Interpretation Comments group B streptococcus (gbs) by negative real-time PCR (test code = group B streptococcus (gbs) by real-time PCR) escherichia coli by real-time PCR negative (test code = escherichia coli by real-time PCR) proteus mirabilis by real-time PCR negative (test code = proteus mirabilis by real-time PCR) staphylococcus saprophyticus by negative real-time PCR (test code = staphylococcus saprophyticus by real-time PCR) enterococcus faecalis by real-time negative PCR (test code = enterococcus faecalis by real-time PCR) enterococcus faecium by real-time negative PCR (test code = enterococcus faecium by real-time PCR) klebsiella species by real-time PCR negative (reflex to speciation by pyrosequencing) (test code = klebsiella species by real-time PCR (reflex to speciation by pyrosequencing)) pseudomonas aeruginosa by real-time negative PCR (test code = pseudomonas aeruginosa by real-time PCR) [facility] - [id number] 07:22:00 Test Item Value Reference Range Interpretation Comments Color of Urine by Auto (test code yellow = 99082-1) Appearance of Urine (test code = clear clear 5767-9) Glucose [Presence] in Urine by trace (50 negative Automated test strip (test code = 33036-0) Bilirubin.total [Mass/volume] in negative negative Urine (test code = 1978-6) Ketones [Mass/volume] in Urine by =1 negative H Automated test strip (test code = 30465-9) Specific gravity of Urine by 1.023 1.003-1.030 Automated test strip (test code = 45645-7) blood urine (test code = blood negative negative urine) pH of Urine (test code = 2756-5) 6.000 5-9 protein urine (UA) (test code = trace negative protein urine (UA)) Urobilinogen [Presence] in Urine normal 0.2-1.0 (test code = 47819-4) Nitrite [Presence] in Urine by negative negative Test strip (test code = 5802-4) Leukocyte esterase [Presence] in =1 negative H Urine by Automated test strip (test code = 86769-8) Erythrocytes [#/volume] in Urine <1 0-5 by Automated count (test code = 798-9) Leukocytes [#/area] in Urine =1-5 0-5 sediment by Automated count (test code = 04603-4) Epithelial cells [Presence] in =11-14 0-5 Urine sediment by Light microscopy (test code = 05592-7) Bacteria identified in Urine by moderate (2 none detect H Culture (test code = 630-4) Casts [#/area] in Urine sediment =6-10 none detect H by Automated count (test code = 36929-7) urine culture added? (test code = yes urine culture added?) path casts,U (test code = path none seen none detect casts,U) [facility] Urine by [id number] 07:22:00Bacteria Ur [facility] - Urine 2018-09-18 07:22:00 Test Item Value Reference Range Interpretation Comments Color of Urine by Auto (test code yellow = 05486-5) Appearance of Urine (test code = clear clear 5767-9) Glucose [Presence] in Urine by trace (50 negative Automated test strip (test code = 21017-5) Bilirubin.total [Mass/volume] in negative negative Urine (test code = 1978-6) Ketones [Mass/volume] in Urine by =1 negative H Automated test strip (test code = 32743-1) Specific gravity of Urine by 1.023 1.003-1.030 Automated test strip (test code = 03618-2) blood urine (test code = blood negative negative urine) pH of Urine (test code = 2756-5) 6.000 5-9 protein urine (UA) (test code = trace negative protein urine (UA)) Urobilinogen [Presence] in Urine normal 0.2-1.0 (test code = 38838-4) Nitrite [Presence] in Urine by negative negative Test strip (test code = 5802-4) Leukocyte esterase [Presence] in =1 negative H Urine by Automated test strip (test code = 16296-7) Erythrocytes [#/volume] in Urine <1 0-5 by Automated count (test code = 798-9) Leukocytes [#/area] in Urine =1-5 0-5 sediment by Automated count (test code = 09075-3) Epithelial cells [Presence] in =11-14 0-5 Urine sediment by Light microscopy (test code = 64826-3) Bacteria identified in Urine by moderate (2 none detect H Culture (test code = 630-4) Casts [#/area] in Urine sediment =6-10 none detect H by Automated count (test code = 21127-7) urine culture added? (test code = yes urine culture added?) path casts,U (test code = path none seen none detect casts,U) [facility] Urine by [id number] 07:22:00Bacteria Ur [facility]ville[facility] [Mass/volume] in Capillary [id number] 09:53:57 Test Item Value Reference Range Interpretation Comments GLU (test code = GLU) 97 [facility]Gl[facility] [Mass/volume] in Capillary [id number] 09:53:57 Test Item Value Reference Range Interpretation Comments GLU (test code = GLU) 97 [facility]Ur[facility] macro (dipstick) panel - [id number] 09:53:17 Test Item Value Reference Range Interpretation Comments Leukocytes (test code = Leukocytes) Negative Nitrite (test code = Nitrite) negative Urobilinogen (test code = .2 Urobilinogen) Protein (test code = Protein) Negative pH (test code = pH) 6.5 Blood (test code = Blood) Negative Specific [place] (test code = 1.015 Specific [place]) Ketone (test code = Ketone) Small Bilirubin (test code = Bilirubin) Negative Glucose (test code = Glucose) Negative Appearance (test code = Appearance) Clear Color (test code = Color) Yellow [facility]Ur[facility] (dipstick) panel - [id number] 09:53:17 Test Item Value Reference Range Interpretation Comments Leukocytes (test code = Leukocytes) Negative Nitrite (test code = Nitrite) negative Urobilinogen (test code = .2 Urobilinogen) Protein (test code = Protein) Negative pH (test code = pH) 6.5 Blood (test code = Blood) Negative Specific [place] (test code = 1.015 Specific [place]) Ketone (test code = Ketone) Small Bilirubin (test code = Bilirubin) Negative Glucose (test code = Glucose) Negative Appearance (test code = Appearance) Clear Color (test code = Color) Yellow [facility] complete panel - [id number] 00:00:00 Test Item Value Reference Range Interpretation Comments Color of Urine by Auto (test code = yellow 35046-1) Appearance of Urine (test code = clear clear 5767-9) Glucose [Presence] in Urine by negative negative Automated test strip (test code = 04375-9) Bilirubin.total [Mass/volume] in negative negative Urine (test code = 1978-6) Ketones [Mass/volume] in Urine by =2 negative H Automated test strip (test code = 20485-0) Specific gravity of Urine by 1.017 1.003-1.030 Automated test strip (test code = 97618-0) blood urine (test code = blood negative negative urine) pH of Urine (test code = 2756-5) 6.500 5-9 protein urine (UA) (test code = negative negative protein urine (UA)) Urobilinogen [Presence] in Urine normal 0.2-1.0 (test code = 60604-0) Nitrite [Presence] in Urine by Test negative negative strip (test code = 5802-4) Leukocyte esterase [Presence] in =2 negative H Urine by Automated test strip (test code = 33787-5) Erythrocytes [#/volume] in Urine by =1-5 0-5 Automated count (test code = 798-9) Leukocytes [#/area] in Urine =15-19 0-5 H sediment by Automated count (test code = 78314-7) Epithelial cells [Presence] in Urine =6-10 0-5 sediment by Light microscopy (test code = 04296-8) Bacteria identified in Urine by small(1 none detect Culture (test code = 630-4) Casts [#/area] in Urine sediment by =6-10 none detect H Automated count (test code = 61696-6) urine culture added? (test code = yes urine culture added?) [facility] identified in Urine by [id number] 00:00:00Bacteria Ur [facility]antib[facility] sensitivity testing, [id number] 00:00:00 Test Item Value Reference Range Interpretation Comments Gentamicin [Susceptibility] by <4 Minimum inhibitory concentration (MANDO) (test code = 267-5) Cefazolin [Susceptibility] by <8 Minimum inhibitory concentration (MANDO) (test code = 76-0) Oxacillin [Susceptibility] by 0.5 ug/mL Minimum inhibitory concentration (MANDO) (test code = 383-0) Penicillin [Susceptibility] by >8 Minimum inhibitory concentration (MANDO) (test code = 6932-8) Trimethoprim+Sulfamethoxazole =0.5 [Susceptibility] by Minimum inhibitory concentration (MANDO) (test code = 516-5) Tetracycline [Susceptibility] by <4 Minimum inhibitory concentration (MANDO) (test code = 496-0) Nitrofurantoin [Susceptibility] by <32 Minimum inhibitory concentration (MANDO) (test code = 363-2) Vancomycin [Susceptibility] by 1 ug/mL Minimum inhibitory concentration (MANDO) (test code = 524-9) Levofloxacin [Susceptibility] by <2 Minimum inhibitory concentration (MANDO) (test code = 03962-0) Ceftriaxone [Susceptibility] by <8 Minimum inhibitory concentration (MANDO) (test code = 141-2) Linezolid [Susceptibility] by 2 ug/mL Minimum inhibitory concentration (MANDO) (test code = 31148-5) Daptomycin [Susceptibility] by <0.5 Minimum inhibitory concentration (MANDO) (test code = 90740-3) Rifampin [Susceptibility] by <1 Minimum inhibitory concentration (MANDO) (test code = 428-3) [facility] GroupUrinalysis complete panel - [id number] 00:00:00 Test Item Value Reference Range Interpretation Comments Color of Urine by Auto (test code = yellow 49466-3) Appearance of Urine (test code = clear clear 5767-9) Glucose [Presence] in Urine by negative negative Automated test strip (test code = 81811-1) Bilirubin.total [Mass/volume] in negative negative Urine (test code = 1978-6) Ketones [Mass/volume] in Urine by =2 negative H Automated test strip (test code = 32971-1) Specific gravity of Urine by 1.017 1.003-1.030 Automated test strip (test code = 59476-4) blood urine (test code = blood negative negative urine) pH of Urine (test code = 2756-5) 6.500 5-9 protein urine (UA) (test code = negative negative protein urine (UA)) Urobilinogen [Presence] in Urine normal 0.2-1.0 (test code = 88612-4) Nitrite [Presence] in Urine by Test negative negative strip (test code = 5802-4) Leukocyte esterase [Presence] in =2 negative H Urine by Automated test strip (test code = 87778-8) Erythrocytes [#/volume] in Urine by =1-5 0-5 Automated count (test code = 798-9) Leukocytes [#/area] in Urine =15-19 0-5 H sediment by Automated count (test code = 74670-6) Epithelial cells [Presence] in Urine =6-10 0-5 sediment by Light microscopy (test code = 61758-8) Bacteria identified in Urine by small(1 none detect Culture (test code = 630-4) Casts [#/area] in Urine sediment by =6-10 none detect H Automated count (test code = 69102-9) urine culture added? (test code = yes urine culture added?) [facility] Urine by [id number] 00:00:00Bacteria Ur [facility] Groupantibiotic sensitivity testing, [id number] 00:00:00 Test Item Value Reference Range Interpretation Comments Gentamicin [Susceptibility] by <4 Minimum inhibitory concentration (MANDO) (test code = 267-5) Cefazolin [Susceptibility] by <8 Minimum inhibitory concentration (MANDO) (test code = 76-0) Oxacillin [Susceptibility] by 0.5 ug/mL Minimum inhibitory concentration (MANDO) (test code = 383-0) Penicillin [Susceptibility] by >8 Minimum inhibitory concentration (MANDO) (test code = 6932-8) Trimethoprim+Sulfamethoxazole =0.5 [Susceptibility] by Minimum inhibitory concentration (MANDO) (test code = 516-5) Tetracycline [Susceptibility] by <4 Minimum inhibitory concentration (MANDO) (test code = 496-0) Nitrofurantoin [Susceptibility] by <32 Minimum inhibitory concentration (MANDO) (test code = 363-2) Vancomycin [Susceptibility] by 1 ug/mL Minimum inhibitory concentration (MANDO) (test code = 524-9) Levofloxacin [Susceptibility] by <2 Minimum inhibitory concentration (MANDO) (test code = 41202-9) Ceftriaxone [Susceptibility] by <8 Minimum inhibitory concentration (MANDO) (test code = 141-2) Linezolid [Susceptibility] by 2 ug/mL Minimum inhibitory concentration (MANDO) (test code = 66895-2) Daptomycin [Susceptibility] by <0.5 Minimum inhibitory concentration (MANDO) (test code = 76845-7) Rifampin [Susceptibility] by <1 Minimum inhibitory concentration (MANDO) (test code = 428-3) [facility] in Capillary [id number] 16:03:13 Test Item Value Reference Range Interpretation Comments GLU (test code = GLU) 131 [facility]Gl[facility] [Mass/volume] in Capillary [id number] 16:03:13 Test Item Value Reference Range Interpretation Comments GLU (test code = GLU) 131 [facility] HospitalUrinalysis macro (dipstick) panel - [id number] 15:59:10 Test Item Value Reference Range Interpretation Comments Leukocytes (test code = Leukocytes) Trace Nitrite (test code = Nitrite) negative Urobilinogen (test code = .2 Urobilinogen) Protein (test code = Protein) Trace pH (test code = pH) 6.0 Blood (test code = Blood) Negative Specific [place] (test code = 1.030 Specific [place]) Ketone (test code = Ketone) Negative Bilirubin (test code = Bilirubin) Negative Glucose (test code = Glucose) 100 Appearance (test code = Appearance) Clear Color (test code = Color) Yellow [facility] HospitalUrinalysis macro (dipstick) panel - [id number] 15:59:10 Test Item Value Reference Range Interpretation Comments Leukocytes (test code = Leukocytes) Trace Nitrite (test code = Nitrite) negative Urobilinogen (test code = .2 Urobilinogen) Protein (test code = Protein) Trace pH (test code = pH) 6.0 Blood (test code = Blood) Negative Specific [place] (test code = 1.030 Specific [place]) Ketone (test code = Ketone) Negative Bilirubin (test code = Bilirubin) Negative Glucose (test code = Glucose) 100 Appearance (test code = Appearance) Clear Color (test code = Color) Yellow [facility] HospitalHemoglobin A1c [Mass/volume] in [id number] 02:35:00 Test Item Value Reference Range Interpretation Comments Hemoglobin A1c in Blood (test code = 5.6 % 4.0-6.0 55275-9) [facility] HospitalCB W Auto Differential panel - [id number] 00:00:00 Test Item Value Reference Range Interpretation Comments white blood count (test code = 9.5 K/uL 4.0-11.5 white blood count) red blood count (test code = red 4.11 M/uL 3.80-5.20 blood count) Hemoglobin [Mass/volume] in Blood 11.7 g/dL 10.5-15.7 (test code = 718-7) hematocrit (test code = hematocrit) 36.5 % 34.0-50.0 Erythrocyte mean corpuscular volume 88.9 fL 78-98 [Entitic volume] (test code = 78669-1) Erythrocyte mean corpuscular 28.4 pg 26.2-33.4 hemoglobin [Entitic mass] (test code = 96473-4) mean corpuscular HGB conc (test 31.9 g/dL 31.5-36.2 code = mean corpuscular HGB conc) red cell distribution width (test 12.7 % 11.5-15.5 code = red cell distribution width) Platelets [#/volume] in Blood (test 161 K/uL 137-338 code = 74405-9) Platelet mean volume [Entitic 9.8 fL 8.4-11.8 volume] in Blood (test code = 23703-3) Neutrophils.band form/100 73.0 % 44.4-80.1 leukocytes in Blood (test code = 81550-1) Lymphocytes/100 leukocytes in Body 18.5 % 10.0-50.0 fluid (test code = 34988-0) Monocytes/100 leukocytes in Blood 7.0 % 3.6-12.0 by Automated count (test code = 5905-5) Eosinophils/100 leukocytes in Blood 1.1 % 0.0-5.4 by Automated count (test code = 713-8) Basophils/100 leukocytes in 0.4 % 0.0-0.79 Unspecified specimen (test code = 19247-9) [facility] GroupHemoglobin A1c [Mass/volume] in [id number] 00:00:00 Test Item Value Reference Range Interpretation Comments Hemoglobin A1c in Blood (test code = 5.6 % 4.0-6.0 24177-9) [facility] GroupBlood [facility] antibody screen [Presence] in Serum or Plasma 2018-08-30 00:00:00 Test Item Value Reference Range Interpretation Comments Blood group antibody screen negative [Presence] in Serum or Plasma (test code = 890-4) [facility] GroupHIV 1+2 Ab [Presence] in [id number] 00:00:00HIV P24 AgHIV-1/2 AbMatagorda Medical GroupReagin Ab [Presence] in Serum by RPR 2018-08-30 00:00:00 Test Item Value Reference Range Interpretation Comments Reagin Ab [Presence] in Serum by nonreactive nonreactive RPR (test code = 48900-0) [facility] GroupGlucose [Mass/volume] in Capillary [id number] 14:18:00 Test Item Value Reference Range Interpretation Comments GLU (test code = GLU) 50mg/dL [facility] GroupGlucose [Mass/volume] in Capillary [id number] 14:18:00 Test Item Value Reference Range Interpretation Comments GLU (test code = GLU) 50mg/dL [facility] GroupGlucose [Mass/volume] in Capillary [id number] 14:18:00 Test Item Value Reference Range Interpretation Comments GLU (test code = GLU) 50mg/dL [facility] HospitalUrinalysis macro (dipstick) panel - [id number] 14:02:40 Test Item Value Reference Range Interpretation Comments Leukocytes (test code = Leukocytes) Trace Nitrite (test code = Nitrite) negative Urobilinogen (test code = .2 Urobilinogen) Protein (test code = Protein) Negative pH (test code = pH) 6.0 Blood (test code = Blood) Negative Specific [place] (test code = 1.015 Specific [place]) Ketone (test code = Ketone) Negative Bilirubin (test code = Bilirubin) Negative Glucose (test code = Glucose) Negative Appearance (test code = Appearance) Clear Color (test code = Color) Yellow [facility] HospitalUrinalysis macro (dipstick) panel - [id number] 14:02:40 Test Item Value Reference Range Interpretation Comments Leukocytes (test code = Leukocytes) Trace Nitrite (test code = Nitrite) negative Urobilinogen (test code = .2 Urobilinogen) Protein (test code = Protein) Negative pH (test code = pH) 6.0 Blood (test code = Blood) Negative Specific [place] (test code = 1.015 Specific [place]) Ketone (test code = Ketone) Negative Bilirubin (test code = Bilirubin) Negative Glucose (test code = Glucose) Negative Appearance (test code = Appearance) Clear Color (test code = Color) Yellow [facility] GroupUrinalysis macro (dipstick) panel - [id number] 14:02:40 Test Item Value Reference Range Interpretation Comments Leukocytes (test code = Leukocytes) Trace Nitrite (test code = Nitrite) negative Urobilinogen (test code = .2 Urobilinogen) Protein (test code = Protein) Negative pH (test code = pH) 6.0 Blood (test code = Blood) Negative Specific [place] (test code = 1.015 Specific [place]) Ketone (test code = Ketone) Negative Bilirubin (test code = Bilirubin) Negative Glucose (test code = Glucose) Negative Appearance (test code = Appearance) Clear Color (test code = Color) Yellow [facility] GroupUrinalysis complete panel - [id number] 01:45:00 Test Item Value Reference Range Interpretation Comments Color of Urine by Auto (test colorless code = 13327-8) Appearance of Urine (test code clear clear = 5767-9) Glucose [Presence] in Urine by negative negative Automated test strip (test code = 96095-4) Bilirubin.total [Mass/volume] negative negative in Urine (test code = 1978-6) Ketones [Mass/volume] in Urine negative negative by Automated test strip (test code = 52922-6) Specific gravity of Urine by 1.004 1.003-1.030 Automated test strip (test code = 35338-1) blood urine (test code = blood =2 negative H urine) pH of Urine (test code = 6.500 5-9 2756-5) protein urine (UA) (test code = negative negative protein urine (UA)) Urobilinogen [Presence] in normal 0.2-1.0 Urine (test code = 40401-2) Nitrite [Presence] in Urine by negative negative Test strip (test code = 5802-4) Leukocyte esterase [Presence] negative negative in Urine by Automated test strip (test code = 56615-9) Erythrocytes [#/volume] in <1 0-5 Urine by Automated count (test code = 798-9) Leukocytes [#/area] in Urine =1-5 0-5 sediment by Automated count (test code = 82324-8) Epithelial cells [Presence] in =1-5 0-5 Urine sediment by Light microscopy (test code = 26452-0) Bacteria identified in Urine by none detected none detect Culture (test code = 630-4) Casts [#/area] in Urine none detected none detect sediment by Automated count (test code = 80928-0) urine culture added? (test code no = urine culture added?) [facility] HospitalUrinalysis complete panel - [id number] 01:45:00 Test Item Value Reference Range Interpretation Comments Color of Urine by Auto (test colorless code = 74481-8) Appearance of Urine (test code clear clear = 5767-9) Glucose [Presence] in Urine by negative negative Automated test strip (test code = 14056-1) Bilirubin.total [Mass/volume] negative negative in Urine (test code = 1978-6) Ketones [Mass/volume] in Urine negative negative by Automated test strip (test code = 75534-9) Specific gravity of Urine by 1.004 1.003-1.030 Automated test strip (test code = 55884-9) blood urine (test code = blood =2 negative H urine) pH of Urine (test code = 6.500 5-9 2756-5) protein urine (UA) (test code = negative negative protein urine (UA)) Urobilinogen [Presence] in normal 0.2-1.0 Urine (test code = 17359-9) Nitrite [Presence] in Urine by negative negative Test strip (test code = 5802-4) Leukocyte esterase [Presence] negative negative in Urine by Automated test strip (test code = 05483-7) Erythrocytes [#/volume] in <1 0-5 Urine by Automated count (test code = 798-9) Leukocytes [#/area] in Urine =1-5 0-5 sediment by Automated count (test code = 03661-1) Epithelial cells [Presence] in =1-5 0-5 Urine sediment by Light microscopy (test code = 01807-3) Bacteria identified in Urine by none detected none detect Culture (test code = 630-4) Casts [#/area] in Urine none detected none detect sediment by Automated count (test code = 22891-3) urine culture added? (test code no = urine culture added?) [facility] HospitalChlamydia trachomatis+Neisseria gonorrhoeae DNA [Presence] in Cervix by Probe and target amplification [id number] 11:47:00 ResultsMataField Memorial Community HospitalGlucose [Mass/volume] in Capillary [id number] 09:28:11 Test Item Value Reference Range Interpretation Comments GLU (test code = GLU) 107 [facility] HospitalGlucose [Mass/volume] in Capillary [id number] 09:28:11 Test Item Value Reference Range Interpretation Comments GLU (test code = GLU) 107 [facility] HospitalUrinalysis macro (dipstick) panel - [id number] 09:25:55 Test Item Value Reference Range Interpretation Comments Leukocytes (test code = Leukocytes) Negative Nitrite (test code = Nitrite) negative Urobilinogen (test code = .2 Urobilinogen) Protein (test code = Protein) Negative pH (test code = pH) 7.0 Blood (test code = Blood) Negative Specific [place] (test code = 1.020 Specific [place]) Ketone (test code = Ketone) Negative Bilirubin (test code = Bilirubin) Negative Glucose (test code = Glucose) Negative Appearance (test code = Appearance) Clear Color (test code = Color) Yellow [facility] HospitalUrinalysis macro (dipstick) panel - [id number] 09:25:55 Test Item Value Reference Range Interpretation Comments Leukocytes (test code = Leukocytes) Negative Nitrite (test code = Nitrite) negative Urobilinogen (test code = .2 Urobilinogen) Protein (test code = Protein) Negative pH (test code = pH) 7.0 Blood (test code = Blood) Negative Specific [place] (test code = 1.020 Specific [place]) Ketone (test code = Ketone) Negative Bilirubin (test code = Bilirubin) Negative Glucose (test code = Glucose) Negative Appearance (test code = Appearance) Clear Color (test code = Color) Yellow [facility] HospitalMicroscopic observation [Identifier] in Cervix by Cyto stain.thin [id number] 00:00:00ResultsMatagoSt. Dominic HospitalUrinalysis macro (dipstick) panel - [id number] 14:46:39 Test Item Value Reference Range Interpretation Comments Leukocytes (test code = Large Leukocytes) Nitrite (test code = Nitrite) negative Urobilinogen (test code = .2 Urobilinogen) Protein (test code = Protein) 30 pH (test code = pH) 7.0 Blood (test code = Blood) Large Specific [place] (test code = 1.030 Specific [place]) Ketone (test code = Ketone) Moderate Bilirubin (test code = Negative Bilirubin) Glucose (test code = Glucose) Negative Appearance (test code = Slightly Cloudy Appearance) Color (test code = Color) Yellow [facility] HospitalUrinalysis macro (dipstick) panel - [id number] 14:46:39 Test Item Value Reference Range Interpretation Comments Leukocytes (test code = Large Leukocytes) Nitrite (test code = Nitrite) negative Urobilinogen (test code = .2 Urobilinogen) Protein (test code = Protein) 30 pH (test code = pH) 7.0 Blood (test code = Blood) Large Specific [place] (test code = 1.030 Specific [place]) Ketone (test code = Ketone) Moderate Bilirubin (test code = Negative Bilirubin) Glucose (test code = Glucose) Negative Appearance (test code = Slightly Cloudy Appearance) Color (test code = Color) Yellow [facility] HospitalGlucose [Mass/volume] in Capillary [id number] 14:45:12 Test Item Value Reference Range Interpretation Comments GLU (test code = GLU) 178 [facility] HospitalGlucose [Mass/volume] in Capillary [id number] 14:45:12 Test Item Value Reference Range Interpretation Comments GLU (test code = GLU) 178 [facility] HospitalCBC W Auto Differential panel - [id number] 02:30:00 Test Item Value Reference Range Interpretation Comments white blood count (test code = 7.8 K/uL 4.0-11.5 white blood count) red blood count (test code = red 4.71 M/uL 3.80-5.20 blood count) Hemoglobin [Mass/volume] in Blood 12.2 g/dL 10.5-15.7 (test code = 718-7) hematocrit (test code = hematocrit) 38.9 % 34.0-50.0 Erythrocyte mean corpuscular volume 82.5 fL 78-98 [Entitic volume] (test code = 19552-7) Erythrocyte mean corpuscular 25.9 pg 26.2-33.4 L hemoglobin [Entitic mass] (test code = 67414-3) mean corpuscular HGB conc (test 31.5 g/dL 31.5-36.2 code = mean corpuscular HGB conc) red cell distribution width (test 15.9 % 11.5-15.5 H code = red cell distribution width) Platelets [#/volume] in Blood (test 174 K/uL 137-338 code = 16213-5) Platelet mean volume [Entitic 9.8 fL 8.4-11.8 volume] in Blood (test code = 10328-0) Neutrophils.band form/100 67.6 % 44.4-80.1 leukocytes in Blood (test code = 87996-0) Lymphocytes/100 leukocytes in Body 23.7 % 10.0-50.0 fluid (test code = 20684-3) Monocytes/100 leukocytes in Blood 6.4 % 3.6-12.04 by Automated count (test code = 5905-5) Eosinophils/100 leukocytes in Blood 1.8 % 0.0-5.41 by Automated count (test code = 713-8) Basophils/100 leukocytes in Blood 0.6 % 0.0-0.79 by Automated count (test code = 706-2) [facility] HospitalHemoglobin A1c [Mass/volume] in [id number] 02:30:00 Test Item Value Reference Range Interpretation Comments Hemoglobin A1c in Blood (test code = 6.9 % 4.0-6.0 H 85181-7) [facility] HospitalRubella virus IgG Ab [Titer] in [id number] 02:30:00 Test Item Value Reference Range Interpretation Comments Rubella virus IgG Ab 146.2 [IU]/mL [Units/volume] in Serum by Immunoassay (test code = 5334-8) [facility] HospitalHIV 1+2 Ab [Presence] in [id number] 02:30:00HIV P24 AgHIV-1/2 AbMataField Memorial Community HospitalABO & Rh group [Type] in [id number] 02:30:00 Test Item Value Reference Range Interpretation Comments Rh [Type] in Blood (test code = 4+ 68059-4) ABO and Rh group panel - Blood A positive (test code = 75845-8) [facility] HospitalBlood group antibody screen [Presence] in Serum or Plasma 2018-05-02 02:30:00 Test Item Value Reference Range Interpretation Comments Blood group antibody screen negative [Presence] in Serum or Plasma (test code = 890-4) [facility] HospitalBacteria identified in Urine by [id number] 02:30:00Bacteria Ur CultSharkey Iss[facility]ena Community HospitalReagin Ab [Presence] in Serum by [id number] 02:30:00 Test Item Value Reference Range Interpretation Comments Reagin Ab [Presence] in Serum by nonreactive nonreactive RPR (test code = 44682-2) [facility] HospitalHepatitis B virus surface Ag [Presence] in Serum 2018-05-02 02:30:00 Test Item Value Reference Range Interpretation Comments .hepatitis B surface antigen (test negative negative code = .hepatitis B surface antigen) [facility] HospitalGLUCOMETER GLUCOSE- LAB USE [id number] 17:10:00 Test Item Value Reference Range Interpretation Comments GLUCOMETER (test 116 mg/dL 70-100 H DAILY MAINT ENANCEMeter code = GMG) ID: [id number] perator: [id number] MYLA HERNANDEZ
--- NOTE | 2020-01-16 17:23 | RAD REPORT ---
EXAM DESCRIPTION: RAD - Ankle Left 3 View -01/16/2020 5:07 pm CLINICAL HISTORY: Left ankle pain status post injury FINDINGS: No fracture or dislocation is seen.
--- NOTE | 2020-01-16 18:03 | EDPHYS ---
Physician Documentation [facility] Name: Annie Mora Age: 24 yrs Sex: Female : 1995 Arrival Date: 01/16/2020 Time: 15:13 Bed 13 Private MD: ED Physician Irvin Matias HPI: 01/15 18:41 This 24 yrs old Female presents to ER via Wheelchair with complaints of Fall snw Injury, Ankle Injury. 18:41 Details of fall: The patient fell from an upright position, while walking. Onset: The snw symptoms/episode began/occurred suddenly. Associated injuries: The patient sustained left foot and left lateral malleolus, decreased range of motion, painful injury, swelling. Severity of symptoms: At their worst the symptoms were moderate. The patient has not experienced similar symptoms in the past. It is unknown whether or not the patient has recently seen a physician. no LOC or other injury. 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 - Social history:: Smoking status: Patient denies any tobacco usage or history of. ROS: 18:40 Constitutional: Negative for fever, chills, and weight loss, Eyes: Negative for injury, snw pain, redness, and discharge, ENT: Negative for injury, pain, and discharge, Neck: Negative for injury, pain, and swelling, Cardiovascular: Negative for chest pain, palpitations, and edema, Respiratory: Negative for shortness of breath, cough, wheezing, and pleuritic chest pain, Abdomen/GI: Negative for abdominal pain, nausea, vomiting, diarrhea, and constipation, Back: Negative for injury and pain, : Negative for injury, bleeding, discharge, and swelling, MS/Extremity: Positive for injury, fell down some stairs, pain and swelling to left lower leg and foot Skin: Negative for injury, rash, and discoloration, Neuro: Negative for headache, weakness, numbness, tingling, and seizure, Psych: Negative for depression, anxiety, suicide ideation, homicidal ideation, and hallucinations. Exam: 18:26 Constitutional: This is a well developed, well nourished patient who is awake, alert, snw and in no acute distress. Head/Face: Normocephalic, atraumatic. Eyes: Pupils equal round and reactive to light, extra-ocular motions intact. Lids and lashes normal. Conjunctiva and sclera are non-icteric and not injected. Cornea within normal limits. Periorbital areas with no swelling, redness, or edema. ENT: Nares patent. No nasal discharge, no septal abnormalities noted. Tympanic membranes are normal and external auditory canals are clear. Oropharynx with no redness, swelling, or masses, exudates, or evidence of obstruction, uvula midline. Mucous membranes moist. Neck: Trachea midline, no thyromegaly or masses palpated, and no cervical lymphadenopathy. Supple, full range of motion without nuchal rigidity, or vertebral point tenderness. No Meningismus. Chest/axilla: Normal chest wall appearance and motion. Nontender with no deformity. No lesions are appreciated. Cardiovascular: Regular rate and rhythm with a normal S1 and S2. No gallops, murmurs, or rubs. Normal PMI, no JVD. No pulse deficits. Respiratory: Lungs have equal breath sounds bilaterally, clear to auscultation and percussion. No rales, rhonchi or wheezes noted. No increased work of breathing, no retractions or nasal flaring. Abdomen/GI: Soft, non-tender, with normal bowel sounds. No distension or tympany. No guarding or rebound. No evidence of tenderness throughout. Back: No spinal tenderness. No costovertebral tenderness. Full range of motion. Skin: Warm, dry with normal turgor. Normal color with no rashes, no lesions, and no evidence of cellulitis. Neuro: Awake and alert, GCS 15, oriented to person, place, time, and situation. Cranial nerves II-XII grossly intact. Motor strength 5/5 in all extremities. Sensory grossly intact. Cerebellar exam normal. Normal gait. Psych: Awake, alert, with orientation to person, place and time. Behavior, mood, and affect are within normal limits. 18:26 Musculoskeletal/extremity: Extremities: grossly normal except: noted in the left lateral malleolus: contusion, swelling, tenderness, Circulation is intact in all extremities. abrasion to left lateral ankle. Vital Signs: 15:39 BP 127 / 80; Pulse 83; Resp 16; Temp 98.7(TE); Pulse Ox 99% on R/A; Weight 99.79 kg; ss Height 4 ft. 10 in. (147.32 cm); Pain 8/10; 18:45 BP 131 / 85; Pulse 83; Resp 17; Pulse Ox 99% ; Pain 4/10; ll1 15:39 Body Mass Index 45.98 (99.79 kg, 147.32 cm) ss MDM: 17:19 Patient medically screened. snw 18:41 Data reviewed: vital signs, nurses notes. Data interpreted: Pulse oximetry: on room air snw is 99 %. Interpretation: normal. Counseling: I had a detailed discussion with the patient and/or guardian regarding: the historical points, exam findings, and any diagnostic results supporting the discharge/admit diagnosis, radiology results, the need for outpatient follow up, to return to the emergency department if symptoms worsen or persist or if there are any questions or concerns that arise at home. Special discussion: Based on the history and exam findings, there is no indication for further emergent testing or inpatient evaluation. I discussed with the patient/guardian the need to see the orthopedic surgeon for further evaluation of the symptoms. I discussed with the patient/guardian the need to see the primary care provider for further evaluation of the symptoms. 01/15 15:46 Order name: Ankle Left 3 View XRAY; Complete Time: 17:30 snw 01/15 18:01 Order name: Walking boot; Complete Time: 18:15 snw Administered Medications: 18:14 Drug: VICOdin 7.5 mg-750 mg (ES) 1 tabs Route: PO; ll1 18:48 Follow up: Response: No adverse reaction; Pain is decreased; RASS: Alert and Calm (0) ll1 18:32 Drug: Tetanus-Diphtheria Toxoid Adult 0.5 ml {Channel Opener: ALCOHOOT. Exp: ll1 05/23/2021. Lot #: [id number]. } Route: IM; Site: left deltoid; 18:48 Follow up: Response: No adverse reaction; RASS: Alert and Calm (0) ll1 Disposition: 01/16/20 18:01 Discharged to Home. Impression: Sprain of ankle, Other sprain of left foot. - Condition is Stable. - Discharge Instructions: Ankle Sprain, Foot Sprain, RICE for Routine Care of Injuries, Walking Boot. - Prescriptions for Diclofenac Sodium 75 mg Oral Tablet Sustained Release - take 1 tablet by ORAL route 2 times per day; 30 tablet. orphenadrine citrate 100 mg Oral Tablet Sustained Release - take 1 tablet by ORAL route 2 times per day As needed; 20 tablet. - Work release form, Medication Reconciliation Form, Thank You Letter, Antibiotic Education, Prescription Opioid Use form. - Follow up: Emergency Department; When: As needed; Reason: Worsening of condition. Follow up: Private Physician; When: 2 - 3 days; Reason: Recheck today's complaints, Continuance of care, Re-evaluation by your physician. Addendum: 01/19/2020 05:55 Co-signature as Attending Physician, Irvin Matias MD I agree with the assessment and k dr plan of care. Signatures: Dispatcher [employer] EDMS Irvin Matias MD MD [facility] Elizabeth Kapoor, KENNETH-C [employer] OPERATIONS SPECIALIST-Makayla Jacobs RN RN ss Malissa Goodman RN RN ll1 Corrections: (The following items were deleted from the chart) 01/15 18:49 18:01 01/16/2020 18:01 Discharged to Home. Impression: Sprain of ankle; Other sprain of ll1 left foot. Condition is Stable. Forms are Medication Reconciliation Form, Thank You Letter, Antibiotic Education, Prescription Opioid Use. Follow up: Emergency Department; When: As needed; Reason: Worsening of condition. Follow up: Private Physician; When: 2 - 3 days; Reason: Recheck today's complaints, Continuance of care, Re-evaluation by your physician. snw
--- NOTE | 2020-01-16 18:03 | ER ---
Nurse's Notes [facility] Name: Annie Mora Age: 24 yrs Sex: Female : 1995 Arrival Date: 01/16/2020 Time: 15:13 Bed 13 [employer] MD: Diagnosis: Sprain of ankle;Other sprain of left foot Presentation: 01/15 15:37 Chief complaint: Patient states: L ankle pain after falling down half a flight of steps ss this morning. Coronavirus screen: Client denies travel out of the [place] in the last 14 days. Ebola Screen: Patient denies exposure to infectious person. Patient denies travel to an Ebola-affected area in the 21 days before illness onset. Initial Sepsis Screen: Does the patient meet any 2 criteria? No. Patient's initial sepsis screen is negative. Does the patient have a suspected source of infection? No. Patient's initial sepsis screen is negative. Risk Assessment: Do you want to hurt yourself or someone else? Patient reports no desire to harm self or others. Onset of symptoms was January 16, 2020. 15:37 Method Of Arrival: Wheelchair ss 15:37 Acuity: THADDEUS 4 ss CORN PICKER: 18:51 LMP N/A - control method ll1 Historical: - Allergies: 15:39 No Known Allergies; ss - Home Meds: 15:39 metformin 500 mg Oral tab 1 tab 2 times per day [Active]; ss - PMHx: 15:39 Migraines; Diabetes - NIDDM; ss - PSHx: 15:39 ; ss - Immunization history:: Adult Immunizations up to date. - Social history:: Smoking status: Patient denies any tobacco usage or history of. Screenin:33 Abuse screen: Denies threats or abuse. Nutritional screening: No deficits noted. ll1 Tuberculosis screening: No symptoms or risk factors identified. Fall Risk Fall in past 12 months (25 points). Ambulatory Aid- Crutches/Cane/Walker (15 pts). Gait- Impaired (20 pts.). Total [place]antes Fall Scale indicates High Risk Score (45 or more points). Fall prevention measures have been instituted. Side Rails Up X 2 Placed Close to Nursing Station Frequent Obs/Assessments Occuring As available patient and family educated on Fall Prevention Program and Strategies. Assessment: 17:32 General: Appears in no apparent distress. Behavior is calm, cooperative. Pain: ll1 Complains of pain in L ankle Quality of pain is described as aching, Pain began 1 day ago. Is continuous. Neuro: No deficits noted. Cardiovascular: No deficits noted. Respiratory: No deficits noted. GI: No deficits noted. Musculoskeletal: Circulation, motion, and sensation intact. Capillary refill < 3 seconds, Tenderness present in L ankle Reports pain in L ankle. Injury Description: Bruise. 18:30 Reassessment: Patient and/or family updated on plan of care and expected duration. Pain ll1 level reassessed. Patient is alert, oriented x 3, equal unlabored respirations, skin warm/dry/pink. 18:49 Musculoskeletal: Circulation, motion, and sensation intact. Capillary refill < 3 ll1 seconds. Vital Signs: 15:39 BP 127 / 80; Pulse 83; Resp 16; Temp 98.7(TE); Pulse Ox 99% on R/A; Weight 99.79 kg; ss Height 4 ft. 10 in. (147.32 cm); Pain 8/10; 18:45 BP 131 / 85; Pulse 83; Resp 17; Pulse Ox 99% ; Pain 4/10; ll1 15:39 Body Mass Index 45.98 (99.79 kg, 147.32 cm) ss ED Course: 15:13 Patient arrived in ED. mr 15:38 Triage completed. ss 15:39 Arm band placed on right wrist. ss 16:50 Elizabeth Kap[facility]NP-C [facility]. snw 16:50 Irvin Matias MD is Attending Physician. snw 17:02 Malissa Goodman RN is Primary Nurse. ll1 17:07 Ankle Left 3 View XRAY In Process Unspecified. EDMS 17:34 Patient has correct armband on for positive identification. Bed in low position. Call ll1 light in reach. Side rails up X 1. Cardiac monitoring not applicable on this patient. 18:49 No provider procedures requiring assistance completed. Patient did not have IV access ll1 during this emergency room visit. Administered Medications: 18:14 Drug: VICOdin 7.5 mg-750 mg (ES) 1 tabs Route: PO; ll1 18:48 Follow up: Response: No adverse reaction; Pain is decreased; RASS: Alert and Calm (0) ll1 18:32 Drug: Tetanus-Diphtheria Toxoid Adult 0.5 ml {Account Leader: [employer]. Exp: ll1 05/23/2021. Lot #: [id number]. } Route: IM; Site: left deltoid; 18:48 Follow up: Response: No adverse reaction; RASS: Alert and Calm (0) ll1 Outcome: 18:01 Discharge ordered by . pricila 18:49 Discharged to home via wheelchair. ll1 18:49 Condition: stable 18:49 Discharge instructions given to patient, Instructed on discharge instructions, follow up and referral plans. no drinking with medication, no driving heavy equipment, medication usage, Demonstrated understanding of instructions, follow-up care, medications, Prescriptions given X 2. 18:49 Patient left the ED. 1 Signatures: Dispatcher [employer] EDMS Elizabeth Kapoor, GOVIND PACEP-Babs Torres Shelby, RN RN Malissa Espinal RN RN 1
[2020-01-16] MEDS ORDERED: HYDROCODONE/APAP 7.5/325 MG TAB ONE (18:22)
[2020-01-16] MEDS ORDERED: TETANUS & DIPHTHERIA TOX,ADULT 0.5 ML VIAL ONE (18:42)
[2020-01-16 19:24] VITALS: TEMP 98.7; O2SAT 99
[2020-01-16 19:25] VITALS: BP 131/85
== END 2020-01-16 18:49 | disposition home or self-care (01) ==
LOC: ER 15:09
DX: S93.402A Sprain of unspecified ligament of left ankle, initial encounter (principal); S93.692A Other sprain of left foot, initial encounter; W10.9XXA Fall (on) (from) unspecified stairs and steps, initial encounter; Y93.01 Activity, walking, marching and hiking; Y92.9 Unspecified place or not applicable; Z23 Encounter for immunization; E11.9 Type 2 diabetes mellitus without complications
CPT/HCPCS: 90471; 90714; 99283

== ENCOUNTER 2020-03-23 10:57 | Emergency (ER) | payer OTHER, SELFPAY ==
--- OUTSIDE RECORDS SUMMARY | 2020-03-23 11:02 | XMS REPORT | Encounter Summary ---
:1995 Author Care Team Providers Name Role Phone Chase Buckley Emergency Department Manager [phone] Reason for Visit NOB; Ob problem Instructions 1. Threatened miscarriage in fir st trimester urinalysis, dipstick US, obstetric, transvagina l 2. Pre-existing type 2 diabetes mellitus in glyburide 5 mg tablet HbA1c (hemoglobin A1c), bl ood 3. Uterine scar from previous jarvis rgery in , childbirth and the puerperium with problem 4. History of pre-eclampsia 5. screening CBC w/ auto diff culture, urine HIV (1+2) Ab screen, serum RPR (rapid plasma reagin), serum abo group + rh type, blood rubella Ab, titer, serum HBsAg (hepatitis B surface Ag), serum antibody screen, serum or plasma Discussion Note Discussed diet, activity, PNV, and iron supplement. Explained expected symptoms for current and future trimesters. Plans for upcoming visits outlined, including ultrasounds and screening test s. Gave new Ob literature. Explained how to contact us after-hours and asked her to call if cramping, bleeding, or nausea occur or if she has any questions or problems. Possible causes of bleeding in early , risks of miscarriage, and pro gnosis discussed. Advised pelvic rest and avoiding strenuous or prolonged activity . Call if symptoms persist or worsen. Total time face to face with patient was at le ast 30 minutes and over 50% was spent on counseling. Patient educational handouts: No information available. Plan of Care Reminders Provider Appointments OB Sono Chase Buckley, 03/30/2020 3:45PM OB Sonogram Sonog olesya 03/30/2020 4:00PM Lab Urinalysis, In-Ho use Results Dipstick 03/15/2020 CBC W/ Auto [place] Diff 03/15/2020 [facility] (Lab) Culture, Urine [place] 03/15/2020 [facility] (Lab) HIV (1+2) Ab Proctor chiki Screen, Serum 03/15/2020 [facility] (Lab) RPR (Rapid [place] program director/traffic director Plasma Reagin), Serum 03/15/2020 [facility] (Lab) Abo Group + Rh Ma latricia Type, Blood 03/15/2020 [facility] (Lab) Rubella Ab, [place] Titer, Serum 03/15/2020 [facility] (Lab) HBsAg [place] (Hepatitis B Surface Ag), 03/15/2020 [facility] (Lab) Antibody [place] Screen, Serum or Plasma 03/15/2020 [facility] (Lab) HbA1C [place] (Hemoglobin a1C), Blood 03/15/2020 [facility] (Labs) (X ray) Referral None recorded. Procedures None recorded. Surgeries None recorded. Imaging US, Obstetric, In -House Results Transvaginal 03/15/2020 Medications Name Start Date glyburide 5 mg tablet take two tabs p.o. q am and one tab q pm metformin 500 mg tablet TAKE 1 TABLET BY MOUTH TWICE DAILY metformin ER 500 mg tablet,extended release 24 hr TAKE 1 TABLET BY MOUTH TWICE DAILY terconazole 0.8 % vaginal cream Insert 1 applicatorful every day by vaginal route for 3 days. True Metrix Glucose Meter True Metrix Glucose Test Strip Medications Administered None recorded. Vitals Height Weight BMI Blood Pressure 4 ft 10 in 211 lbs 44.1 kg/m2 138/80 mm[Hg] Results Lab Results Date Name Specimen Result Interpretation Description Value Range Status Address 03/15/2020 Urinalysis, Leukocytes Negative In-House Dipstick Results: For Internal U se Only, Do N ot Delete/stefanie ge Nitrite negative In-Addie se Results: F or Internal U se Only, Do N ot Delete/stefanie ge Urobilinogen .2 In- House Results: F or Internal U se Only, Do N ot Delete/stefanie ge Protein Negative In-Addie se Results: F or Internal U se Only, Do N ot Delete/stefanie ge Ph 5.5 In-House Results: F or Internal U se Only, Do N ot Delete/stefanie ge Blood Large In-House Results: F or Internal U se Only, Do N ot Delete/stefanie ge Specific 1.020 In-Hous e [place] Results: For Internal U se Only, Do N ot Delete/stefanie ge Ketone Trace In-House Results: F or Internal U se Only, Do N ot Delete/stefanie ge Bilirubin Negative In-H ouse Results: F or Internal U se Only, Do N ot Delete/stefanie ge Glucose 100 In-House Results: F or Internal U se Only, Do N ot Delete/stefanie ge Appearance Slightly In- House Cloudy Results: F or Internal U se Only, Do N ot Delete/stefanie ge Color Yellow In-House Results: F or Internal U se Only, Do N ot Delete/stefanie ge 02/20/2020 Pap, LB + CYT ABNORMAL TP Reflex abnormal Fi nal Propath CT/NG + Reflex HPV (L ab): 1355 hr HPV ASCUS-CT/NG [place] Neft[facility] Benoit CYT Normal CT/NG normal Final Propath (Lab): 135 5 [place] [facility]ftali Benoit 02/19/2020 Hemoglobin High Hemoglobin 8.8 % 4. [place]atra [place] a1C, QN, Blood a1C 0- Re gional 6. [place] [id number] Center ([place]): % 104 7th [facility] 02/19/2020 positive In-House Test, Urine Test Resul ts: For Internal U se Only, Do N ot Delete/stefanie ge 02/19/2020 Urinalysis, Leukocytes Negative In-House Dipstick Results: For Internal U se Only, Do N ot Delete/stefanie ge Nitrite negative In-Addie se Results: F or Internal U se Only, Do N ot Delete/stefanie ge Urobilinogen .2 In- House Results: F or Internal U se Only, Do N ot Delete/stefanie ge Protein Negative In-Addie se Results: F or Internal U se Only, Do N ot Delete/stefanie ge Ph 5.5 In-House Results: F or Internal U se Only, Do N ot Delete/stefanie ge Blood Negative In-House Results: F or Internal U se Only, Do N ot Delete/stefanie ge Specific 1.025 In-Hous e [place] Results: For Internal U se Only, Do N ot Delete/stefanie ge Ketone Large In-House (80) Results: F or Internal U se Only, Do N ot Delete/stefanie ge Bilirubin Negative In-H ouse Results: F or Internal U se Only, Do N ot Delete/stefanie ge Glucose 250 In-House Results: F or Internal U se Only, Do N ot Delete/stefanie ge Appearance Clear In-Ho use Results: F or Internal U se Only, Do N ot Delete/stefanie ge Color Yellow In-House Results: F or Internal U se Only, Do N ot Delete/stefanie ge US, Obstetric, No In -House Transvaginal observation Results: For recorded. Interna l Use Only, Do N ot Delete/stefanie ge US, Obstetric, No In -House Transvaginal observation Results: For recorded. Interna l Use Only, Do N ot Delete/stefanie ge [place], Clue Cells negative In-House Vaginal Results: For Internal U se Only, Do N ot Delete/stefanie ge Wbcs positive In-House Results: F or Internal U se Only, Do N ot Delete/stefanie ge Trichomonads negative I n-House Results: F or Internal U se Only, Do N ot Delete/stefanie ge Epithelial normal In-Ho use Cells Results: F or Internal U se Only, Do N ot Delete/stefanie ge Rbcs negative In-House Results: F or Internal U se Only, Do N ot Delete/stefanie ge Allergies Code Code System Name Reaction Severity Status Onset NKDA Problems Name Status Onset Date Source Candidal Vulvovaginitis Active 05/02/2018 History of Pre-eclampsia Active 05/02/2018 Type 2 Diabetes Mellitus Active 11/26/2018 Acute Cystitis Active 11/26/2018 Depression Active 11/26/2018 Decreased Active 11/26/2018 Candidiasis of Skin Active 12/13/2018 Initiation of [place] Contraception Done Active 9 Pre-existing Type 2 Diabetes Mellitus in Active Uterine Scar from Previous Surgery in , Active Childbirth and the Puerperium with Problem Procedures Date Name Performed by 02/11/2016 Delivery Information not avai lable 08/04/2013 Caesarean Section Information not avai lable 02/19/2020 US, Obstetric, Transvaginal In-House Res ults For Internal Use Onl y DO Not Delete/Merge [id number] 03/15/2020 US, Obstetric, Transvaginal In-House Res ults For Internal Use Onl y DO Not Delete/Merge [id number] Vaccine List None recorded. Social History Tobacco Smoking Status Never Smoker Past Encounters Encounter Date Diagnosis Provider 03/15/2020 Threatened Miscarriage in First Chase Buckley MD: 600 Trimester; Pre-existing Type 2 [facility] [address], Diabetes Mellitus in ; [place] [address], Uterine Scar from Previous Ph. [phone] Surgery in , Childbirth and the Puerperium with Problem; History of Pre-eclampsia; Screening 02/19/2020 Gynecologic Examination; Chase Buckley MD: 600 Contraception Education; [facility] [address], Diabetes Mellitus; [place] [address], of Vagina; Detection Ph. [phone] Examination History of Present Illness Note: Problem visit. Diagnosed four weeks ago. No problems until today when she started bleeding with intermittent cramping. She has type 2 diabetes and is taking glyburide. HgbA1C on 02/19/20was 8.8. We were unable to contact her to discuss. She had stopped taking Metformin a few weeks prior to her last visit. She states her fasting blood sugars have been 100-110, postprandial have been 120-150. No other problems. No fever, chills, nausea, headaches, or body aches.Review of Systems: ROS as noted in the HPI Review of Systems HIGHWAY LANDSCAPE ARCHITECT ROS Reported By: Patient Physical Exam Pelvic Reported By: Patient Lane Marker Installer: Lane Marker Installer: present Female Genitalia: Vulva: no masses, no atrophy , no lesions. Bladder/Urethra: normal meatus, no urethral discharg e, no urethral mass, bladder non distended. Vagina no tendern ess, no erythema, no vesicle(s) or ulcers, no cystocele, no rec tocele; small to moderate amount of blood in vagina. Cervix: markie ssly normal, no discharge, no cervical motion tenderness. Uterus: n ormal size, normal shape, midline, mobile, non-tender, no uteri ne prolapse. Adnexa/Parametria: no parametrial tenderness, no p arametrial mass, no adnexal tenderness, no ovarian mass
--- OUTSIDE RECORDS SUMMARY | 2020-03-23 11:02 | XMS REPORT | Encounter Summary ---
:1995 Author Care Team Providers Name Role Phone Chase Marcio Professor Of Counseling [phone] Reason for Visit Well woman exam Instructions 1. Gynecologic examination urinalysis, dipstick pap, LB + CT/NG + reflex H R HPV test, urine 2. Contraception education 3. Diabetes mellitus HbA1c (hemoglobin A1c), bl ood glyburide 5 mg tablet 4. Candidiasis of vagina wet mount, vaginal terconazole 0.8 % vaginal cream 5. detection examinati on US, obstetric, transvagina l Discussion Note Pap, GC/CT done. Counseled regardin g prevention of STD's and discussed contraceptive options. Advised avoidance of tobacco, alcohol, and drugs . Encouraged good nutrition, regular exercise, and id eal body weight. Patient educational handouts: No information available. Plan of Care Reminders Provider Appointments New OB Patient Chase Peralespas, 03/16/2020 2:00PM OB Sono Sonogram 03/16/2020 2:00PM Lab [place], In-Addie se Results Vaginal 02/19/2020 Urinalysis, In-Ho use Results Dipstick 02/19/2020 Pap, LB + CT/NG P ropath (Lab) + Reflex hr HPV 02/19/2020 Test, I n-House Results Urine 02/19/2020 HbA1C [place] (Hemoglobin a1C), Blood 02/19/2020 [facility] (Labs) (X ray) Referral None recorded. Procedures None recorded. Surgeries None recorded. Imaging US, Obstetric, In -House Results Transvaginal 02/19/2020 Medications Name Start Date glyburide 5 mg tablet Take 1 tablet twice a day by oral route. metformin 500 mg tablet TAKE 1 TABLET [...] BMI Blood Pressure 4 ft 10 in 212.1 lbs 44.3 kg/m2 137/92 mm[Hg] Results Lab Results Date Name Specimen Result Interpretation Description Value Range Status Address 02/19/2020 Test, Test positive In-House Urine Results: F or Internal U se Only, [...] ot Delete/stefanie ge Specific 1.025 In-Hous e [place] Results: For Internal U se Only, Do N ot Delete/stefanie ge Ketone Large (80) In-Ho use Results: F or Internal U se Only, Do N ot Delete/stefanie ge Bilirubin Negative In-H ouse Results: F or Internal U se Only, Do N ot Delete/stefanie ge Glucose 250 In-House Results: F or Internal U se Only, Do N ot Delete/stefanie ge Appearance Clear In-Ho use Results: F or Internal U se Only, Do N ot Delete/stefaine ge Color Yellow In-House Results: F or Internal U se Only, Do N ot Delete/stefanie ge US, Obstetric, No observation In-House Transvaginal recorded. R esults: For Internal U se Only, Do N ot Delete/stefanie ge Wet [...] Internal Use Onl y DO Not Delete/Merge [id number] Vaccine List None recorded. Social History Tobacco Smoking Status Never Smoker Past Encounters Encounter Date Diagnosis Provider 02/19/2020 Gynecologic Examination; Chase Buckley MD: 600 Contraception Education; [facility] [address], Diabetes Mellitus; [place] [address], of Vagina; Detection Ph. [phone] Examination History of Present Illness Note: Well woman visit. 25 y/o with type 2 DM, currently taking Metformin but with GI side effects. Her LMP was 01/07/20. Review of Systems B[employer]INGUAL SALES CONSULTANT ROS Reported By: Patient Constitutional: Constitutional: no fatigue, no fever, no significant weight gain, no significant weight loss Skin: Skin: no abnormal moles, no rashes Eyes: Eyes: no irritation, no visi on changes ENMT: ENMT: no hearing loss, no ea r pain, no nose/sinus problems, no sore throat, no snoring, no dry m outh, no mouth ulcers Respiratory: Respiratory: no dyspnea / sh ortness of breath, no cough, no sputum production, no hemoptysis, n o wheezing Cardiovascular: Cardiovascular: no chest nilton n, no palpitations, no orthopnea Gastrointestinal: Gastrointestinal: no heartbu rn, no dysphagia, no nausea, no vomiting, no abdominal pain, no bowel movement changes, no diarrhea, no constipation, n o rectal bleeding Genitourinary: Genitourinary: no hematuria, no abnormal bleeding, no flank pain, no trouble urinating, no inc ontinence, no rash, no lesion, no discharge, no vaginal odor, no vaginal itching Endocrine: Menstrual: no menstrual prob lems, no PMDD symptoms. Menopausal: no menopausal symptoms. Sexual: no sexual problems Musculoskeletal: Musculoskeletal: no muscle a ches, no muscle weakness, no arthralgias/joint pain, no b ack pain Neurological: Neurologic: no headaches, no dizziness, no LOC, no weakness, no numbness, no seizures Psychological: Psych: no depression, no alc oholism, no sleep disturbances Physical Exam Annual Drier Tender Reported By: Patient Vp Research: Vp Research: present Constitutional: General Appearance: healthy- appearing, well-nourished, well-developed Psychiatric: Orientation: to time, to aparna ce, to person. Mood and Affect: active and alert, normal mood, norm al affect Skin: Appearance: no rashes, no le sions Neck: Neck: supple, trachea midlin e, no masses, FROM. Thyroid: no enlargement, no nodules, non -tender Lungs: Respiratory Effort: no inter costal retractions, no accessory muscle usage. Auscultation: clear t o auscultation, no wheezing, no rales/crackles, no rhonchi Cardiovascular: Auscultation: RRR, no murmur . Peripheral Vascular: no LLE edema, no RLE edema, no varicosities, no calf tenderness, no palpable cords, pedal pulses intact Abdomen: Auscultation/Inspection/Palp ation: soft, non-distended, no tenderness, no hepatomegaly, no splenomegaly, no masses. Hernia: none palpated Female Genitalia: Vulva: no masses, no atrophy , no lesions. Vagina: no tenderness, no erythema, no abnormal vagina l discharge, no vesicle(s) or ulcers, no cystocele, no rectocele. Cervix: grossly normal, no discharge, no cervical motion tendernes s, sample taken for a Pap smear. Uterus: normal size, normal shape, midline, no uterine prolapse, mobile, non-tender. Bladder/ Urethra: normal meatus, no urethral discharge, no urethral mass, bladder non distended. Adnexa/Parametria: no parame trial tenderness, no parametrial mass, no adnexal tenderness, no ov gerald mass Lymph Nodes: Palpation: non tender subman dibular nodes, non tender inguinal nodes Rectal Exam: Rectum: normal perianal skin , no hemorrhoids
--- OUTSIDE RECORDS SUMMARY | 2020-03-23 11:02 | XMS REPORT | Continuity of Care Document ---
:1995 Author Organization [facility] t Address [address] [place] [address] Care Team Providers Name Role Phone OEI Attending Clinician Unavailable OEI Admitting Clinician Unavailable Problems Condition Condition Condition Status Onset Resolution Last Treating Co mments Source Name Details Category Date Date Treatment Clinician Date Candidiasi Candidiasi Problem Active 2019-1 [facility] s of skin s of Skin 0-04 da 00:00: Medical 00 Group Initiation Initiation Problem Active 1 [facility] [place] 0-04 [...] Pre-eclamp 2- da primo primo 00:00: Medical Group Pre-existi Pre-existi Problem Active [facility] [...] Start Date Stop Date Source Never Smoker Roundup Medica l Group Medications Ordered Filled Start Stop Current Ordering Indication Dosage Frequency Signature Comments Components Source Medication Medication Date Date Medication? Clinician (SIG) Name Name glyburide 5 glyburide 5 No glyburide [facility] mg tablet mg tablet 5 mg da take two take two tablet Medic al tabs p.o. q tabs p.o. q take two Group am and one am and one tabs p.o. tab q pm tab q pm q am and one tab q pm metformin metformin No metformin [facility] 500 mg 500 mg 500 mg da tablet TAKE tablet TAKE tablet Medical 1 TABLET BY 1 TABLET BY TAKE 1 Group MOUTH TWICE MOUTH TWICE TABLET BY DAILY DAILY MOUTH TWICE DAILY metformin metformin No metformin [place] ER 500 mg ER 500 mg ER 500 mg da tablet,exte tablet,exte tablet,ext Medical nded nded ended Group release 24 release 24 release 24 hr TAKE 1 hr TAKE 1 hr TAKE 1 TABLET BY TABLET BY TABLET BY MOUTH TWICE MOUTH TWICE MOUTH DAILY DAILY TWICE DAILY terconazole terconazole No 1applic Q1D terconazol [facility] 0.8 % 0.8 % ator(s) e 0.8 % da vaginal vaginal ful vaginal Medica l cream cream cream Group Insert 1 Insert 1 Insert 1 applicatorf applicatorf applicator ul every ul every ful every day by day by day by vaginal vaginal vaginal route for 3 route for 3 route for days. days. 3 days. True Metrix True Metrix No True [facility] Glucose Glucose Metrix da Meter Meter Glucose Medical Meter Group True Metrix True Metrix No True [facility] Glucose Glucose Metrix da Test Strip Test Strip Glucose Medical Test Strip Group Vital Signs Vital Name Observation Time Observation Value Comments Source BP Diastolic 2020-03-15 00:00:00 80 mm[Hg] [facility] Height 2020-03-15 00:00:00 58 [in_i] [facility] BMI (Body Mass 2020-03-15 00:00:00 44.1 kg/m2 [facility] Index) Group BP Systolic 2020-03-15 00:00:00 138 mm[Hg] [facility] Body Weight 2020-03-15 00:00:00 211 [lb_av] [facility] BP Diastolic 2020-02-19 00:00:00 92 mm[Hg] [facility] Height 2020-02-19 00:00:00 58 [in_i] [facility] BMI (Body Mass 2020-02-19 00:00:00 44.3 kg/m2 [facility] Index) Group BP Systolic 2020-02-19 00:00:00 137 mm[Hg] [facility] Body Weight 2020-02-19 00:00:00 212.1 [lb_av] [facility] BP Diastolic 2018-12-13 00:00:00 75 mm[Hg] [facility] Height 2018-12-13 00:00:00 58 [in_i] [facility] BMI (Body Mass 2018-12-13 00:00:00 42.2 kg/m2 [facility] Index) Group BP Systolic 2018-12-13 00:00:00 120 mm[Hg] [facility] Body Weight 2018-12-13 00:00:00 202 [lb_av] [facility] BP Diastolic 2018-11-26 00:00:00 71 mm[Hg] [facility] Height 2018-11-26 00:00:00 58 [in_i] [facility] BMI (Body Mass 2018-11-26 00:00:00 41.2 kg/m2 [facility] Index) Group BP Systolic 2018-11-26 00:00:00 129 mm[Hg] [facility] Body Weight 2018-11-26 00:00:00 197.3 [lb_av] [facility] BP Diastolic 2018-11-05 00:00:00 92 mm[Hg] [facility] Height 2018-11-05 00:00:00 58 [in_i] [facility] BMI (Body Mass 2018-11-05 00:00:00 45.1 kg/m2 [facility] Index) Group BP Systolic 2018-11-05 00:00:00 126 mm[Hg] [facility] Body Weight 2018-11-05 00:00:00 215.9 [lb_av] [facility] BP Diastolic 2018-10-29 00:00:00 88 mm[Hg] [facility] Height 2018-10-29 00:00:00 58 [in_i] [facility] BMI (Body Mass 2018-10-29 00:00:00 45.2 kg/m2 [facility] Index) Group BP Systolic 2018-10-29 00:00:00 128 mm[Hg] [facility] Body Weight 2018-10-29 00:00:00 216.1 [lb_av] [facility] BP Diastolic 2018-10-15 00:00:00 81 mm[Hg] [facility] Height 2018-10-15 00:00:00 58 [in_i] [facility] BMI (Body Mass 2018-10-15 00:00:00 43.8 kg/m2 [facility] Index) Group BP Systolic 2018-10-15 00:00:00 128 mm[Hg] [facility] Body Weight 2018-10-15 00:00:00 209.4 [lb_av] [facility] BP Diastolic 2018-09-30 00:00:00 75 mm[Hg] [facility] Height 2018-09-30 00:00:00 58 [in_i] [facility] BMI (Body Mass 2018-09-30 00:00:00 43.5 kg/m2 [facility] Index) Group BP Systolic 2018-09-30 00:00:00 122 mm[Hg] [facility] Body Weight 2018-09-30 00:00:00 208 [lb_av] [facility] BP Diastolic 2018-09-13 00:00:00 73 mm[Hg] [facility] Height 2018-09-13 00:00:00 58 [in_i] [facility] BMI (Body Mass 2018-09-13 00:00:00 43.2 kg/m2 [facility] Index) Group BP Systolic 2018-09-13 00:00:00 123 mm[Hg] [facility] Body Weight 2018-09-13 00:00:00 206.6 [lb_av] [facility] BP Diastolic 2018-08-30 00:00:00 78 mm[Hg] [facility] Height 2018-08-30 00:00:00 58 [in_i] [facility] BMI (Body Mass 2018-08-30 00:00:00 43.3 kg/m2 [facility] Index) Group BP Systolic 2018-08-30 00:00:00 133 mm[Hg] [facility] Body Weight 2018-08-30 00:00:00 207 [lb_av] [facility] BP Diastolic 2018-08-16 00:00:00 74 mm[Hg] [facility] Height 2018-08-16 00:00:00 58 [in_i] [facility] BMI (Body Mass 2018-08-16 00:00:00 43.8 kg/m2 [facility] Index) Group BP Systolic 2018-08-16 00:00:00 125 mm[Hg] [facility] Body Weight 2018-08-16 00:00:00 209.8 [lb_av] [facility] BP Diastolic 2018-06-10 00:00:00 75 mm[Hg] [facility] Height 2018-06-10 00:00:00 58 [in_i] [facility] BMI (Body Mass 2018-06-10 00:00:00 42.2 kg/m2 [facility] Index) Group BP Systolic 2018-06-10 00:00:00 136 mm[Hg] [facility] Body Weight 2018-06-10 00:00:00 202 [lb_av] [facility] BP Diastolic 2018-05-17 00:00:00 77 mm[Hg] [facility] Height 2018-05-17 00:00:00 58 [in_i] [facility] BMI (Body Mass 2018-05-17 00:00:00 42.2 kg/m2 [facility] Index) Group BP Systolic 2018-05-17 00:00:00 128 mm[Hg] [facility] Body Weight 2018-05-17 00:00:00 202 [lb_av] [facility] BP Diastolic 2018-05-02 00:00:00 79 mm[Hg] [facility] Height 2018-05-02 00:00:00 58 [in_i] [facility] BMI (Body Mass 2018-05-02 00:00:00 42 kg/m2 [facility] Index) Group BP Systolic 2018-05-02 00:00:00 165 mm[Hg] [facility] Body Weight 2018-05-02 00:00:00 201 [lb_av] [facility] Procedures Procedure Date / Time Performing Clinician Source Performed ULTRASOUND, 2020-03-15 00:00:00 [facility] UTERUS REAL TIME WITH Group IMAGE DOCUMENTAITON, TRANSVAGINAL ULTRASOUND, 2020-02-19 00:00:00 [facility] UTERUS REAL TIME WITH Group IMAGE DOCUMENTAITON, TRANSVAGINAL US(FBP)W/0 NON STRESS 2018-11-05 00:00:00 [facility] TEST Group US, obstetric, limited 2018-10-29 00:00:00 [facility] US, obstetric, limited 2018-09-30 00:00:00 [facility] ULTRASOUND REPEAT 2018-08-30 00:00:00 [facility] unlisted imaging order 2018-08-16 00:00:00 [facility] US, obstetric, limited 2018-06-10 00:00:00 [facility] ULTRASOUND, 2018-06-10 00:00:00 [facility] UTERUS REAL TIME WITH Group IMAGE DOC, AND MATERNAL EVAL PLUS DETAILED ANATOMIC EXAMINATION, TRANSABDOMINAL APPROACH; SINGLE OR FIRST GESTATION US, obstetric, limited 2018-05-17 00:00:00 [facility] ULTRASOUND, 2018-05-02 00:00:00 [facility] UTERUS REAL TIME WITH Group IMAGE DOCUMENTAITON, TRANSVAGINAL Delivery 2016-02-11 00:00:00 [facility] Caesarean Section 2013-08-04 00:00:00 [facility] Plan of Care Planned Activity Planned Date Details Comments Source Diagnostic Test 2020-03-15 urinalysis, [facility] dical Pending 00:00:00 dipstick [code = Group urinalysis, dipstick] Diagnostic Test 2020-03-15 CBC w/ auto diff [facility] Pending 00:00:00 [code = CBC w/ Group auto diff] Diagnostic Test 2020-03-15 culture, urine [facility] Pending 00:00:00 [code = culture, Group urine] Diagnostic Test 2020-03-15 HIV (1+2) Ab [facility] dical Pending 00:00:00 screen, serum Group [code = HIV (1+2) Ab screen, serum] Diagnostic Test 2020-03-15 [facility] Pending 00:00:00 reagin), serum Group [code = RPR (rapid plasma reagin), serum] Diagnostic Test 2020-03-15 ABO and Rh [facility] Pending 00:00:00 panel - Blood Group [code = 86945-8] Diagnostic Test 2020-03-15 rubella Ab, titer, [facility] envelope addresser [facility] Pending 00:00:00 serum [code = Group rubella Ab, titer, serum] Diagnostic Test 2020-03-15 HBsAg (hepatitis B [facility] Pending 00:00:00 surface Ag), serum Group [code = HBsAg (hepatitis B surface Ag), serum] Diagnostic Test 2020-03-15 Blood group [facility] dical Pending 00:00:00 antibody screen Group [Presence] in Serum or Plasma [code = 890-4] Diagnostic Test 2020-03-15 HbA1c (hemoglobin [facility] Pending 00:00:00 A1c), blood [code Group = HbA1c (hemoglobin A1c), blood] Future Appointment 2020-03-30 Sonogram, [address] [place], [place] [address] 16:00:[address] [address]; , [place] [address] Future Appointment 2020-03-30 [facility] 15:45:[address] [place] [address]; , [place] [address] Encounters Start End Encounter Admission Attending Care Care Encounter Source Date/Time Date/Time Type Type Clinicians Facility Department ID 2020-03-15 2020-03-15 Chase AL[place]ARO [place] - [id number] [facility] 00:00:00 00:00:00 Discovery trevor Buckley MD: [address] [place] [phone] , Ph. [phone] 2020-02-19 2020-02-19 Chase AL[place]ARO [place] - [id number] [facility] 00:00:00 00:00:00 Discovery trevor Buckley MD: [address] [place] [phone] , Ph. [phone] 2018-12-13 2018-12-13 Linda ALFARO [place] - [id number] [facility] 00:00:00 00:00:00 Discovery trevor Forrester WHNP: [address] [place] [phone] , Ph. [phone] 2018-11-26 2018-11-26 Chase ALFARO [place] - [id number] [facility] 00:00:00 00:00:00 Discovery trevor Buckley MD: [address] [place], [place] [address] [place] [address] , Ph. [phone] 2018-11-05 2018-11-05 Chase FLOWERS [place] - [id number] [facility] 00:00:00 00:00:00 Discovery trevor Buckley MD: [address] [place] [address], [place] [address] , Ph. [phone] 2018-10-29 2018-10-29 Chase ALFARO [place] - [id number] [facility] 00:00:00 00:00:00 Discovery trevor Buckley MD: [address] [place] [address] , Ph. [phone] 2018-10-15 2018-10-15 Linda ALFARO [place] - [id number] [facility] 00:00:00 00:00:00 Discovery trevor Forrester WHNP: [facility] [address] , Ph. [phone] 2018-09-30 2018-09-30 Lin FLOW[place] - [id number] [facility] 00:00:00 00:00:00 Subhash Sapp Medical Medica tamra MD: [address] [place] [phone] , Ph. [phone] 2018-09-13 2018-09-13 Chase ALFARO [place] - [id number] [facility] 00:00:00 00:00:00 Discovery trevor Buckley MD: [address] [place] [address] , Ph. [phone] 2018-08-30 2018-08-30 Chsae ALFARO [place] - [id number] [facility] 00:00:00 00:00:00 Discovery trevor Buckley MD: [address] [place] [phone] , Ph. [phone] 2018-08-16 2018-08-16 Lindaisra Arguellesn [facility] [place] - [id number] [place] 00:00:00 00:00:00 Discovery Timothy Forrester: [facility] [address] , Ph. [phone] 2018-06-10 2018-06-10 Lin [facility] [place] - [id number] [facility] 00:00:00 00:00:00 Subahsh Sapp Medical Medica tamra MD: [address] [place] [phone] , Ph. [phone] 2018-05-17 2018-05-17 Chase [facility] [place] - [id number] [facility] 00:00:00 00:00:00 Discovery trevor Buckley MD: [address] [place] [address] , Ph. [phone] 2018-05-02 2018-05-02 Chase [facility] [place] - [id number] [facility] 00:00:00 00:00:00 Discovery trevor Buckley MD: [address] [place] [address] , Ph. [phone] 2017-10-19 2017-10-19 Emergency E OEI, [facility] [id number] [facility] 16:41:00 17:20:00 [facility] Results Test Description Test Time Test Comments Results Result Comments Source Urinalysis macro (dipstick) panel - Urine 2020-03-15 13:29:5 3 Test Item Value Reference Range Interpretation Comme nts Leukocytes (test code = Leukocytes) Negative Nitrite (test code = Nitrite) negative Urobilinogen (test code = Urobilinogen) .2 Protein (test code = Protein) Negative pH (test code = pH) 5.5 Blood (test code = Blood) Large Specific [place] (test code = Specific [place]) 1.020 Ketone (test code = Ketone) Trace Bilirubin (test code = Bilirubin) Negative Glucose (test code = Glucose) 100 Appearance (test code = Appearance) Slightly Cloudy Color (test code = Color) Yellow [facility] CT/NG + reflex HR [id number] 00:00:00 Test Item Value Reference Range Interpretation Comments TP reflex HPV ASCUS-CT/NG (test code abnormal A = TP reflex HPV ASCUS-CT/NG) CT/NG (test code = CT/NG) normal [facility], [id number] 15:10:37 Test Item Value Reference Range Interpretation Comments Test (test code = positive Test) [facility], [id number] 15:10:37 Test Item Value Reference Range Interpretation Comments Test (test code = positive Test) [facility] macro (dipstick) panel - [id number] 15:10:05 Test Item Value Reference Range Interpretation Comments Leukocytes (test code = Negative Leukocytes) Nitrite (test code = Nitrite) negative Urobilinogen (test code = .2 Urobilinogen) Protein (test code = Protein) Negative pH (test code = pH) 5.5 Blood (test code = Blood) Negative Specific [place] (test code = 1.025 Specific [place]) Ketone (test code = Ketone) Large (80) Bilirubin (test code = Bilirubin) Negative Glucose (test code = Glucose) 250 Appearance (test code = Clear Appearance) Color (test code = Color) Yellow [facility] macro (dipstick) panel - [id number] 15:10:05 Test Item Value Reference Range Interpretation Comments Leukocytes (test code = Negative Leukocytes) Nitrite (test code = Nitrite) negative Urobilinogen (test code = .2 Urobilinogen) Protein (test code = Protein) Negative pH (test code = pH) 5.5 Blood (test code = Blood) Negative Specific [place] (test code = 1.025 Specific [place]) Ketone (test code = Ketone) Large (80) Bilirubin (test code = Bilirubin) Negative Glucose (test code = Glucose) 250 Appearance (test code = Clear Appearance) Color (test code = Color) Yellow [facility]emoglobin A1c [Mass/volume] in [id number] 03:07:00 Test Item Value Reference Range Interpretation Comments Hemoglobin A1c [Mass/volume] in Blood 8.8 % 4.0-6.0 H (test code = 93030-2) [facility], [id number] 15:26:12 Test Item Value Reference Range Interpretation Comments Test (test code = negative Test) [facility]ysis macro (dipstick) panel - [id number] 14:39:00 Test Item Value Reference Range Interpretation Comments Leukocytes (test code = Leukocytes) Moderate Nitrite (test code = Nitrite) negative Urobilinogen (test code = .2 Urobilinogen) Protein (test code = Protein) Negative pH (test code = pH) 7.0 Blood (test code = Blood) Moderate Specific [place] (test code = 1.020 Specific [place]) Ketone (test code = Ketone) Negative Bilirubin (test code = Bilirubin) Negative Glucose (test code = Glucose) Negative Appearance (test code = Appearance) Clear Color (test code = Color) Yellow [facility] macro (dipstick) panel - [id number] 14:39:00 Test Item Value Reference Range Interpretation Comments Leukocytes (test code = Leukocytes) Moderate Nitrite (test code = Nitrite) negative Urobilinogen (test code = .2 Urobilinogen) Protein (test code = Protein) Negative pH (test code = pH) 7.0 Blood (test code = Blood) Moderate Specific [place] (test code = 1.020 Specific [place]) Ketone (test code = Ketone) Negative Bilirubin (test code = Bilirubin) Negative Glucose (test code = Glucose) Negative Appearance (test code = Appearance) Clear Color (test code = Color) Yellow [facility]acteria identified in Urine by [id number] 01:17:00Bacteria Ur [facility] - [id number] 03:00:00 Test Item Value Reference Range Interpretation Comments white blood count (test code = 9.1 K/uL 4.0-11.5 white blood count) red blood count (test code = red 3.09 M/uL 3.80-5.20 L blood count) hemoglobin (test code = 8.7 g/dL 10.5-15.7 L hemoglobin) hematocrit (test code = 27.9 % 34.0-50.0 L hematocrit) Erythrocyte mean corpuscular 90.3 fL 86-100 volume [Entitic volume] (test code = 76595-8) mean corpuscular hemoglobin (test 28.2 pg 26.2-33.4 [...] 44.4-80.1 leukocytes in Blood (test code = 37146-5) Ig% (test code = Ig%) 0.3 % 0.0-0.4 lymphocyte% (test code = 18.6 % 10.0-50.0 lymphocyte%) mono % (test code = mono %) 7.8 % 3.6-12.0 eos % (test code = eos %) 0.7 % 0.0-5.4 Basophils/100 leukocytes in 0.2 % 0.1-1.2 Unspecified specimen (test code = 16889-7) absolute neutrophil count (test 6.61 K/uL 1.56-6.13 H code = absolute neutrophil count) Ig# (test code = Ig#) 0.0 K/uL 0.0-0.03 Lymphocytes [#/volume] in 1.7 K/uL 1.18-3.74 Unspecified specimen by Automated count (test code = 43352-4) mono # (test code = mono #) 0.71 K/uL 0.24-0.86 eos # (test code = eos #) 0.06 K/uL 0.04-0.36 basophil # (test code = basophil 0.02 K/uL 0.01-0.08 #) NRBC% (test code = NRBC%) 0 /100 WBC 0-0.2 NRBC# (test code = NRBC#) 0 K/uL [facility] W Auto Differential panel - [id number] 04:26:00 Test Item Value Reference Range Interpretation Comments white blood count (test code = 11.2 K/uL 4.0-11.5 white blood count) red blood count (test code = red 3.34 M/uL 3.80-5.20 L blood count) hemoglobin (test code = 9.5 g/dL 10.5-15.7 L hemoglobin) hematocrit (test code = 29.5 % 34.0-50.0 L hematocrit) Erythrocyte mean corpuscular 88.3 fL 86-100 volume [Entitic volume] (test code = 02477-0) mean corpuscular hemoglobin (test 28.4 pg 26.2-33.4 [...] H leukocytes in Blood (test code = 35138-0) Ig% (test code = Ig%) 0.5 % 0.0-0.4 H lymphocyte% (test code = 11.1 % 10.0-50.0 lymphocyte%) mono % (test code = mono %) 7.5 % 3.6-12.0 eos % (test code = eos %) 0 % 0.0-5.4 Basophils/100 leukocytes in 0.2 % 0.1-1.2 Unspecified specimen (test code = 70386-5) absolute neutrophil count (test 9.01 K/uL 1.56-6.13 H code = absolute neutrophil count) Ig# (test code = Ig#) 0.1 K/uL 0.0-0.03 H Lymphocytes [#/volume] in 1.2 K/uL 1.18-3.74 Unspecified specimen by Automated count (test code = 45106-9) mono # (test code = mono #) 0.84 K/uL 0.24-0.86 eos # (test code = eos #) 0.00 K/uL 0.04-0.36 L basophil # (test code = basophil 0.02 K/uL 0.01-0.08 #) NRBC% (test code = NRBC%) 0 /100 WBC 0-0.2 NRBC# (test code = NRBC#) 0 K/uL [facility] and Indirect antibody screen panel - Blood 2018-11-05 12:58:00 Test Item Value Reference Range Interpretation Comments Rh [Type] in Blood (test code = 4+ 27928-2) ABO and Rh group panel - Blood A positive (test code = 14978-9) [facility]atitis B virus surface Ag [Presence] in Serum 2018-11-05 12:58:00 Test Item Value Reference Range Interpretation Comments .hepatitis B surface antigen (test negative negative code = .hepatitis B surface antigen) [facility] Ab [Presence] in Serum by [id number] 12:58:00 Test Item Value Reference Range Interpretation Comments Reagin Ab [Presence] in Serum by nonreactive nonreactive RPR (test code = 01239-7) [facility]inalysis macro (dipstick) panel - [id number] 10:13:00 Test Item Value Reference Range Interpretation Comments Leukocytes (test code = Trace Leukocytes) Nitrite (test code = negative Nitrite) Urobilinogen (test code = .2 Urobilinogen) Protein (test code = Negative Protein) pH (test code = pH) 6.0 Blood (test code = Blood) Hemolyzed: Trace Specific [place] (test code 1.025 = Specific [place]) Ketone (test code = Ketone) Moderate Bilirubin (test code = Negative Bilirubin) Glucose (test code = Negative Glucose) Appearance (test code = Clear Appearance) Color (test code = Color) Yellow [facility] County[facility]inalysis macro (dipstick) panel - [id number] 10:13:00 Test Item Value Reference Range Interpretation Comments Leukocytes (test code = Trace Leukocytes) Nitrite (test code = negative Nitrite) Urobilinogen (test code = .2 Urobilinogen) Protein (test code = Negative Protein) pH (test code = pH) 6.0 Blood (test code = Blood) Hemolyzed: Trace Specific [place] (test code 1.025 = Specific [place]) Ketone (test code = Ketone) Moderate Bilirubin (test code = Negative Bilirubin) Glucose (test code = Negative Glucose) Appearance (test code = Clear Appearance) Color (test code = Color) Yellow [facility]ucose [Mass/volume] in Capillary [id number] 10:11:00 Test Item Value Reference Range Interpretation Comments GLU (test code = GLU) 97 [facility] CountyGlucose [Mass/volume] in Capillary [id number] 10:11:00 Test Item Value Reference Range Interpretation Comments GLU (test code = GLU) 97 [facility] CountyFetal Biophysical profile panel [id number] 09:48:00 Test Item Value Reference Range Interpretation Comments Amniotic Fluid Index (test code = 2 (14.4) Amniotic Fluid Index) Tone (test code = Tone) 2 Breathing (test code = 2 Breathing) Movement (test code = 2 Movement) Non-Stress Test (test code = 2 Non-Stress Test) [facility] Biophysical profile panel [id number] 09:48:00 Test Item Value Reference Range Interpretation Comments Amniotic Fluid Index (test code = 2 (14.4) Amniotic Fluid Index) Tone (test code = Tone) 2 Breathing (test code = 2 Breathing) Movement (test code = 2 Movement) Non-Stress Test (test code = 2 Non-Stress Test) [facility] Auto Differential panel - [id number] 09:41:00 Test Item Value Reference Range Interpretation Comments white blood count (test code = 6.8 K/uL 4.0-11.5 white blood count) red blood count (test code = red 4.27 M/uL 3.80-5.20 blood count) hemoglobin (test code = 11.8 g/dL 10.5-15.7 hemoglobin) hematocrit (test code = 36.8 % 34.0-50.0 hematocrit) Erythrocyte mean corpuscular 86.2 fL 86-100 volume [Entitic volume] (test code = 16976-5) mean corpuscular hemoglobin (test 27.6 pg 26.2-33.4 [...] 44.4-80.1 leukocytes in Blood (test code = 75693-4) Ig% (test code = Ig%) 0.1 % 0.0-0.4 lymphocyte% (test code = 18.3 % 10.0-50.0 lymphocyte%) mono % (test code = mono %) 9.0 % 3.6-12.0 eos % (test code = eos %) 0.6 % 0.0-5.4 Basophils/100 leukocytes in 0.3 % 0.1-1.2 Unspecified specimen (test code = 85700-9) absolute neutrophil count (test 4.84 K/uL 1.56-6.13 code = absolute neutrophil count) Ig# (test code = Ig#) 0.0 K/uL 0.0-0.03 Lymphocytes [#/volume] in 1.2 K/uL 1.18-3.74 Unspecified specimen by Automated count (test code = 00126-9) mono # (test code = mono #) 0.61 K/uL 0.24-0.86 eos # (test code = eos #) 0.04 K/uL 0.04-0.36 basophil # (test code = basophil 0.02 K/uL 0.01-0.08 #) NRBC% (test code = NRBC%) 0 /100 WBC 0-0.2 NRBC# (test code = NRBC#) 0 K/uL [facility] macro (dipstick) panel - [id number] 10:55:43 Test Item Value Reference Range Interpretation Comments Leukocytes (test code = Leukocytes) Small Nitrite (test code = Nitrite) negative Urobilinogen (test code = .2 Urobilinogen) Protein (test code = Protein) Negative pH (test code = pH) 7.0 Blood (test code = Blood) Negative Specific [place] (test code = 1.015 Specific [place]) Ketone (test code = Ketone) Trace Bilirubin (test code = Bilirubin) Negative Glucose (test code = Glucose) Negative Appearance (test code = Appearance) Clear Color (test code = Color) Yellow [facility] macro (dipstick) panel - [id number] 10:55:43 Test Item Value Reference Range Interpretation Comments Leukocytes (test code = Leukocytes) Small Nitrite (test code = Nitrite) negative Urobilinogen (test code = .2 Urobilinogen) Protein (test code = Protein) Negative pH (test code = pH) 7.0 Blood (test code = Blood) Negative Specific [place] (test code = 1.015 Specific [place]) Ketone (test code = Ketone) Trace Bilirubin (test code = Bilirubin) Negative Glucose (test code = Glucose) Negative Appearance (test code = Appearance) Clear Color (test code = Color) Yellow [facility] (dipstick) panel - [id number] 10:55:43 Test Item Value Reference Range Interpretation Comments Leukocytes (test code = Leukocytes) Small Nitrite (test code = Nitrite) negative Urobilinogen (test code = .2 Urobilinogen) Protein (test code = Protein) Negative pH (test code = pH) 7.0 Blood (test code = Blood) Negative Specific [place] (test code = 1.015 Specific [place]) Ketone (test code = Ketone) Trace Bilirubin (test code = Bilirubin) Negative Glucose (test code = Glucose) Negative Appearance (test code = Appearance) Clear Color (test code = Color) Yellow [facility] GroupGlucose [Mass/volume] in Capillary [id number] 10:49:07 Test Item Value Reference Range Interpretation Comments GLU (test code = GLU) 73 [facility] GroupGlucose [Mass/volume] in Capillary [id number] 10:49:07 Test Item Value Reference Range Interpretation Comments GLU (test code = GLU) 73 [facility] GroupGlucose [Mass/volume] in Capillary [id number] 10:49:07 Test Item Value Reference Range Interpretation Comments GLU (test code = GLU) 73 [facility] GroupUrinalysis complete panel - [id number] 00:00:00 Test Item Value Reference Range Interpretation Comments Color of Urine by Auto (test code yellow = 87224-9) Appearance of Urine (test code = SL cloudy clear A 5767-9) Glucose [Presence] in Urine by negative negative Automated test strip (test code = 47204-6) Bilirubin.total [Mass/volume] in negative negative Urine (test code = 1978-6) Ketones [Mass/volume] in Urine by =3 negative H Automated test strip (test code = 22997-7) Specific gravity of Urine by 1.025 1.003-1.030 Automated test strip (test code = 51219-7) blood urine (test code = blood negative negative urine) pH of Urine (test code = 2756-5) 6.000 5-9 protein urine (UA) (test code = trace negative protein urine (UA)) Urobilinogen [Presence] in Urine =2.0 0.2-1.0 H (test code = 99513-3) Nitrite [Presence] in Urine by negative negative Test strip (test code = 5802-4) Leukocyte esterase [Presence] in =4 negative H Urine by Automated test strip (test code = 69935-2) Erythrocytes [#/volume] in Urine =1-5 0-5 by Automated count (test code = 798-9) Leukocytes [#/area] in Urine >50 0-5 H sediment by Automated count (test code = 43314-9) Epithelial cells [Presence] in =6-10 0-5 Urine sediment by Light microscopy (test code = 95507-8) Bacteria identified in Urine by moderate (2 none detect H Culture (test code = 630-4) Casts [#/area] in Urine sediment =15-19 none detect H by Automated count (test code = 21816-7) urine culture added? (test code = yes urine culture added?) [facility] GroupBacteria identified in Urine by [id number] 00:00:00Bacteria Ur [facility] GroupUrinalysis complete panel - Urine 2018-10-26 00:00:00 Test Item Value Reference Range Interpretation Comments Color of Urine by Auto (test code yellow = 21433-1) Appearance of Urine (test code = SL cloudy clear A 5767-9) Glucose [Presence] in Urine by negative negative Automated test strip (test code = 59743-9) Bilirubin.total [Mass/volume] in negative negative Urine (test code = 1977-08) Ketones [Mass/volume] in Urine by =3 negative H Automated test strip (test code = 23993-3) Specific gravity of Urine by 1.025 1.003-1.030 Automated test strip (test code = 51188-3) blood urine (test code = blood negative negative urine) pH of Urine (test code = 2756-5) 6.000 5-9 protein urine (UA) (test code = trace negative protein urine (UA)) Urobilinogen [Presence] in Urine =2.0 0.2-1.0 H (test code = 00799-7) Nitrite [Presence] in Urine by negative negative Test strip (test code = 5802-4) Leukocyte esterase [Presence] in =4 negative H Urine by Automated test strip (test code = 76051-9) Erythrocytes [#/volume] in Urine =1-5 0-5 by Automated count (test code = 798-9) Leukocytes [#/area] in Urine >50 0-5 H sediment by Automated count (test code = 41509-8) Epithelial cells [Presence] in =6-10 0-5 Urine sediment by Light microscopy (test code = 21759-0) Bacteria identified in Urine by moderate (2 none detect H Culture (test code = 630-4) Casts [#/area] in Urine sediment =15-19 none detect H by Automated count (test code = 27651-1) urine culture added? (test code = yes urine culture added?) [facility] GroupBacteria identified in Urine by [id number] 00:00:00Bacteria Ur [facility] GroupUrinalysis complete panel - Urine 2018-10-26 00:00:00 Test Item Value Reference Range Interpretation Comments Color of Urine by Auto (test code yellow = 96972-6) Appearance of Urine (test code = SL cloudy clear A 5767-9) Glucose [Presence] in Urine by negative negative Automated test strip (test code = 35391-0) Bilirubin.total [Mass/volume] in negative negative Urine (test code = 1977-08) Ketones [Mass/volume] in Urine by =3 negative H Automated test strip (test code = 30592-9) Specific gravity of Urine by 1.025 1.003-1.030 Automated test strip (test code = 41676-5) blood urine (test code = blood negative negative urine) pH of Urine (test code = 2756-5) 6.000 5-9 protein urine (UA) (test code = trace negative protein urine (UA)) Urobilinogen [Presence] in Urine =2.0 0.2-1.0 H (test code = 47671-6) Nitrite [Presence] in Urine by negative negative Test strip (test code = 5802-4) Leukocyte esterase [Presence] in =4 negative H Urine by Automated test strip (test code = 22115-9) Erythrocytes [#/volume] in Urine =1-5 0-5 by Automated count (test code = 798-9) Leukocytes [#/area] in Urine >50 0-5 H sediment by Automated count (test code = 63803-5) Epithelial cells [Presence] in =6-10 0-5 Urine sediment by Light microscopy (test code = 20262-8) Bacteria identified in Urine by moderate (2 none detect H Culture (test code = 630-4) Casts [#/area] in Urine sediment =15-19 none detect H by Automated count (test code = 25110-7) urine culture added? (test code = yes urine culture added?) [facility] CountyBacteria identified in Urine by [id number] 00:00:00Bacteria Ur [facility]Pan[facility] CenterUrinalysis macro (dipstick) panel - [id number] 16:26:33 Test Item Value Reference Range Interpretation Comments Leukocytes (test code = Leukocytes) Trace Nitrite (test code = Nitrite) negative Urobilinogen (test code = .2 Urobilinogen) Protein (test code = Protein) Negative pH (test code = pH) 6.0 Blood (test code = Blood) Negative Specific [place] (test code = 1.020 Specific [place]) Ketone (test code = Ketone) Moderate Bilirubin (test code = Bilirubin) Negative Glucose (test code = Glucose) Negative Appearance (test code = Appearance) Clear Color (test code = Color) Yellow [facility] CountyUrinalysis macro (dipstick) panel - [id number] 16:26:33 Test Item Value Reference Range Interpretation Comments Leukocytes (test code = Leukocytes) Trace Nitrite (test code = Nitrite) negative Urobilinogen (test code = .2 Urobilinogen) Protein (test code = Protein) Negative pH (test code = pH) 6.0 Blood (test code = Blood) Negative Specific [place] (test code = 1.020 Specific [place]) Ketone (test code = Ketone) Moderate Bilirubin (test code = Bilirubin) Negative Glucose (test code = Glucose) Negative Appearance (test code = Appearance) Clear Color (test code = Color) Yellow [facility] CountyUrinalysis macro (dipstick) panel - [id number] 16:26:33 Test Item Value Reference Range Interpretation Comments Leukocytes (test code = Leukocytes) Trace Nitrite (test code = Nitrite) negative Urobilinogen (test code = .2 Urobilinogen) Protein (test code = Protein) Negative pH (test code = pH) 6.0 Blood (test code = Blood) Negative Specific [place] (test code = 1.020 Specific [place]) Ketone (test code = Ketone) Moderate Bilirubin (test code = Bilirubin) Negative Glucose (test code = Glucose) Negative Appearance (test code = Appearance) Clear Color (test code = Color) Yellow [facility] CountyHemoglobin A1c [Mass/volume] in [id number] 02:58:00 Test Item Value Reference Range Interpretation Comments Hemoglobin A1c [Mass/volume] in Blood 5.9 % 4.0-6.0 (test code = 94678-2) [facility] CountyHemoglobin A1c [Mass/volume] in [id number] 00:00:00 Test Item Value Reference Range Interpretation Comments Hemoglobin A1c [Mass/volume] in Blood 5.9 % 4.0-6.0 (test code = 80215-2) [facility] CountyHemoglobin A1c [Mass/volume] in [id number] 00:00:00 Test Item Value Reference Range Interpretation Comments Hemoglobin A1c [Mass/volume] in Blood 5.9 % 4.0-6.0 (test code = 50809-4) [facility] CountyCol[facility] count [#/volume] in [id number] 00:00:00 Test Item Value Reference Range Interpretation [...] code = pseudomonas aeruginosa by real-time PCR) [facility] CountyCol[facility] count [#/volume] in [id number] 00:00:00 Test Item Value Reference Range Interpretation [...] code = pseudomonas aeruginosa by real-time PCR) [facility] CountyUrinalysis complete panel - [id number] 07:22:00 Test Item Value Reference Range Interpretation Comments Color of Urine by Auto (test code yellow = 92981-8) Appearance of Urine (test code = clear clear 5767-9) Glucose [Presence] in Urine by trace (50 negative Automated test strip (test code = 91743-1) Bilirubin.total [Mass/volume] in negative negative Urine (test code = 1977-08) Ketones [Mass/volume] in Urine by =1 negative H Automated test strip (test code = 30747-8) Specific gravity of Urine by 1.023 1.003-1.030 Automated test strip (test code = 36560-3) blood urine (test code = blood negative negative urine) pH of Urine (test code = 2756-5) 6.000 5-9 protein urine (UA) (test code = trace negative protein urine (UA)) Urobilinogen [Presence] in Urine normal 0.2-1.0 (test code = 29039-6) Nitrite [Presence] in Urine by negative negative Test strip (test code = 5802-4) Leukocyte esterase [Presence] in =1 negative H Urine by Automated test strip (test code = 99943-2) Erythrocytes [#/volume] in Urine <1 0-5 by Automated count (test code = 798-9) Leukocytes [#/area] in Urine =1-5 0-5 sediment by Automated count (test code = 61030-2) Epithelial cells [Presence] in =11-14 0-5 Urine sediment by Light microscopy (test code = 11778-5) Bacteria identified in Urine by moderate (2 none detect H Culture (test code = 630-4) Casts [#/area] in Urine sediment =6-10 none detect H by Automated count (test code = 82886-8) urine culture added? (test code = yes urine culture added?) path casts,U (test code = path none seen none detect casts,U) [facility] CountyBacteria identified in Urine by [id number] 07:22:00[facility] 2018-09-18 07:22:00 Test Item Value Reference Range Interpretation Comments Color of Urine by Auto (test code yellow = 12376-9) Appearance of Urine (test code = clear clear 5767-9) Glucose [Presence] in Urine by trace (50 negative Automated test strip (test code = 96307-7) Bilirubin.total [Mass/volume] in negative negative Urine (test code = 1977-08) Ketones [Mass/volume] in Urine by =1 negative H Automated test strip (test code = 04456-9) Specific gravity of Urine by 1.023 1.003-1.030 Automated test strip (test code = 29226-9) blood urine (test code = blood negative negative urine) pH of Urine (test code = 2756-5) 6.000 5-9 protein urine (UA) (test code = trace negative protein urine (UA)) Urobilinogen [Presence] in Urine normal 0.2-1.0 (test code = 09836-6) Nitrite [Presence] in Urine by negative negative Test strip (test code = 5802-4) Leukocyte esterase [Presence] in =1 negative H Urine by Automated test strip (test code = 45964-8) Erythrocytes [#/volume] in Urine <1 0-5 by Automated count (test code = 798-9) Leukocytes [#/area] in Urine =1-5 0-5 sediment by Automated count (test code = 46742-2) Epithelial cells [Presence] in =11-14 0-5 Urine sediment by Light microscopy (test code = 42671-2) Bacteria identified in Urine by moderate (2 none detect H Culture (test code = 630-4) Casts [#/area] in Urine sediment =6-10 none detect H by Automated count (test code = 19684-3) urine culture added? (test code = yes urine culture added?) path casts,U (test code = path none seen none detect casts,U) [facility]Bacteria identified in Urine by [id number] 07:22:00Bacteria Ur CultMat[facility] GroupGlucose [Mass/volume] in Capillary [id number] 09:53:57 Test Item Value Reference Range Interpretation Comments GLU (test code = GLU) 97 [facility] GroupGlucose [Mass/volume] in Capillary [id number] 09:53:57 Test Item Value Reference Range Interpretation Comments GLU (test code = GLU) 97 [facility] GroupUrinalysis macro (dipstick) panel - [id number] 09:53:17 Test Item Value Reference Range Interpretation Comments Leukocytes (test code = Leukocytes) Negative Nitrite (test code = Nitrite) negative Urobilinogen (test code = .2 Urobilinogen) Protein (test code = Protein) Negative pH (test code = pH) 6.5 Blood (test code = Blood) Negative Specific [place] (test code = 1.015 Specific [place]) Ketone (test code = Ketone) Small Bilirubin (test code = Bilirubin) Negative Glucose (test code = Glucose) Negative Appearance (test code = Appearance) Clear Color (test code = Color) Yellow [facility] CountyUr[facility]ysis macro (dipstick) panel - [id number] 09:53:17 Test Item Value Reference Range Interpretation Comments Leukocytes (test code = Leukocytes) Negative Nitrite (test code = Nitrite) negative Urobilinogen (test code = .2 Urobilinogen) Protein (test code = Protein) Negative pH (test code = pH) 6.5 Blood (test code = Blood) Negative Specific [place] (test code = 1.015 Specific [place]) Ketone (test code = Ketone) Small Bilirubin (test code = Bilirubin) Negative Glucose (test code = Glucose) Negative Appearance (test code = Appearance) Clear Color (test code = Color) Yellow [facility] CountyUr[facility]ysis complete panel - [id number] 00:00:00 Test Item Value Reference Range Interpretation Comments Color of Urine by Auto (test code = yellow 81946-6) Appearance of Urine (test code = clear clear 5767-9) Glucose [Presence] in Urine by negative negative Automated test strip (test code = 79085-9) Bilirubin.total [Mass/volume] in negative negative Urine (test code = 1978-6) Ketones [Mass/volume] in Urine by =2 negative H Automated test strip (test code = 54078-8) Specific gravity of Urine by 1.017 1.003-1.030 Automated test strip (test code = 72624-6) blood urine (test code = blood negative negative urine) pH of Urine (test code = 2756-5) 6.500 5-9 protein urine (UA) (test code = negative negative protein urine (UA)) Urobilinogen [Presence] in Urine normal 0.2-1.0 (test code = 78062-4) Nitrite [Presence] in Urine by Test negative negative strip (test code = 5802-4) Leukocyte esterase [Presence] in =2 negative H Urine by Automated test strip (test code = 92991-7) Erythrocytes [#/volume] in Urine by =1-5 0-5 Automated count (test code = 798-9) Leukocytes [#/area] in Urine =15-19 0-5 H sediment by Automated count (test code = 65016-8) Epithelial cells [Presence] in Urine =6-10 0-5 sediment by Light microscopy (test code = 73152-2) Bacteria identified in Urine by small(1 none detect Culture (test code = 630-4) Casts [#/area] in Urine sediment by =6-10 none detect H Automated count (test code = 45273-6) urine culture added? (test code = yes urine culture added?) [facility] GroupBacteria identified in Urine by [id number] 00:00:00[facility]acteria Ur [facility] Groupantibiotic sensitivity testing, [id number] 00:00:00 Test Item Value Reference Range Interpretation [...] Minimum inhibitory concentration (MANDO) (test code = 09070-3) Ceftriaxone [Susceptibility] by <8 Minimum inhibitory concentration (MANDO) (test code = 141-2) Linezolid [Susceptibility] by 2 ug/mL Minimum inhibitory concentration (MANDO) (test code = 76768-2) Daptomycin [Susceptibility] by <0.5 Minimum inhibitory concentration (MANDO) (test code = 63052-7) Rifampin [Susceptibility] by <1 Minimum inhibitory concentration (MANDO) (test code = 428-3) [facility] GroupUrinalysis complete panel - [id number] 00:00:00 Test Item Value Reference Range Interpretation Comments Color of Urine by Auto (test code = yellow 28956-1) Appearance of Urine (test code = clear clear 5767-9) Glucose [Presence] in Urine by negative negative Automated test strip (test code = 05530-6) Bilirubin.total [Mass/volume] in negative negative Urine (test code = 1978-6) Ketones [Mass/volume] in Urine by =2 negative H Automated test strip (test code = 93671-0) Specific gravity of Urine by 1.017 1.003-1.030 Automated test strip (test code = 85647-7) blood urine (test code = blood negative negative urine) pH of Urine (test code = 2756-5) 6.500 5-9 protein urine (UA) (test code = negative negative protein urine (UA)) Urobilinogen [Presence] in Urine normal 0.2-1.0 (test code = 37265-5) Nitrite [Presence] in Urine by Test negative negative strip (test code = 5802-4) Leukocyte esterase [Presence] in =2 negative H Urine by Automated test strip (test code = 01793-4) Erythrocytes [#/volume] in Urine by =1-5 0-5 Automated count (test code = 798-9) Leukocytes [#/area] in Urine =15-19 0-5 H sediment by Automated count (test code = 22964-2) Epithelial cells [Presence] in Urine =6-10 0-5 sediment by Light microscopy (test code = 49126-0) Bacteria identified in Urine by small(1 none detect Culture (test code = 630-4) Casts [#/area] in Urine sediment by =6-10 none detect H Automated count (test code = 69379-2) urine culture added? (test code = yes urine culture added?) [facility] identified in Urine by [id number] 00:00:00Bacteria Ur CultPatient[facility] Countyantibiotic sensitivity testing, [id number] 00:00:00 Test Item Value Reference Range Interpretation [...] Minimum inhibitory concentration (MANDO) (test code = 56900-8) Ceftriaxone [Susceptibility] by <8 Minimum inhibitory concentration (MANDO) (test code = 141-2) Linezolid [Susceptibility] by 2 ug/mL Minimum inhibitory concentration (MANDO) (test code = 57570-2) Daptomycin [Susceptibility] by <0.5 Minimum inhibitory concentration (MANDO) (test code = 52093-2) Rifampin [Susceptibility] by <1 Minimum inhibitory concentration (MANDO) (test code = 428-3) [facility] CountyGlucose [Mass/volume] in Capillary [id number] 16:03:13 Test Item Value Reference Range Interpretation Comments GLU (test code = GLU) 131 [facility] CountyGlucose [Mass/volume] in Capillary [id number] 16:03:13 Test Item Value Reference Range Interpretation Comments GLU (test code = GLU) 131 [facility] CountyUrinalysis macro (dipstick) panel - [id number] 15:59:10 Test Item Value Reference Range Interpretation Comments Leukocytes (test code = Leukocytes) Trace Nitrite (test code = Nitrite) negative Urobilinogen (test code = .2 Urobilinogen) Protein (test code = Protein) Trace pH (test code = pH) 6.0 Blood (test code = Blood) Negative Specific [place] (test code = 1.030 Specific [place]) Ketone (test code = Ketone) Negative Bilirubin (test code = Bilirubin) Negative Glucose (test code = Glucose) 100 Appearance (test code = Appearance) Clear Color (test code = Color) Yellow [facility] CountyUrinalysis macro (dipstick) panel - [id number] 15:59:10 Test Item Value Reference Range Interpretation Comments Leukocytes (test code = Leukocytes) Trace Nitrite (test code = Nitrite) negative Urobilinogen (test code = .2 Urobilinogen) Protein (test code = Protein) Trace pH (test code = pH) 6.0 Blood (test code = Blood) Negative Specific [place] (test code = 1.030 Specific [place]) Ketone (test code = Ketone) Negative Bilirubin (test code = Bilirubin) Negative Glucose (test code = Glucose) 100 Appearance (test code = Appearance) Clear Color (test code = Color) Yellow [facility] CountyHemoglobin A1c [Mass/volume] in [id number] 02:35:00 Test Item Value Reference Range Interpretation Comments Hemoglobin A1c in Blood (test code = 5.6 % 4.0-6.0 95984-3) [facility] CountyCBC W Auto Differential panel - [id number] 00:00:00 Test Item Value Reference Range Interpretation Comments white blood count (test code = 9.5 K/uL 4.0-11.5 white blood count) red blood count (test code = red 4.11 M/uL 3.80-5.20 blood count) Hemoglobin [Mass/volume] in Blood 11.7 g/dL 10.5-15.7 (test code = 718-7) hematocrit (test code = hematocrit) 36.5 % 34.0-50.0 Erythrocyte mean corpuscular volume 88.9 fL 78-98 [Entitic volume] (test code = 58914-2) Erythrocyte mean corpuscular 28.4 pg 26.2-33.4 hemoglobin [Entitic mass] (test code = 82698-2) mean corpuscular HGB conc (test 31.9 g/dL 31.5-36.2 code = mean corpuscular HGB conc) red cell distribution width (test 12.7 % 11.5-15.5 code = red cell distribution width) Platelets [#/volume] in Blood (test 161 K/uL 137-338 code = 87435-4) Platelet mean volume [Entitic 9.8 fL 8.4-11.8 volume] in Blood (test code = 34581-1) Neutrophils.band form/100 73.0 % 44.4-80.1 leukocytes in Blood (test code = 16406-8) Lymphocytes/100 leukocytes in Body 18.5 % 10.0-50.0 fluid (test code = 62913-7) Monocytes/100 leukocytes in Blood 7.0 % 3.6-12.0 by Automated count (test code = 5905-5) Eosinophils/100 leukocytes in Blood 1.1 % 0.0-5.4 by Automated count (test code = 713-8) Basophils/100 leukocytes in 0.4 % 0.0-0.79 Unspecified specimen (test code = 92196-3) [facility] GroupHemoglobin A1c [Mass/volume] in [id number] 00:00:00 Test Item Value Reference Range Interpretation Comments Hemoglobin A1c in Blood (test code = 5.6 % 4.0-6.0 92100-4) [facility] GroupBlood [facility] antibody screen [Presence] in Serum or Plasma 2018-08-30 00:00:00 Test Item Value Reference Range Interpretation Comments Blood group antibody screen negative [Presence] in Serum or Plasma (test code = 890-4) [facility] GroupHIV 1+2 Ab [Presence] in [id number] 00:00:00HIV P24 AgHIV-1/2 AbMatagorda Medical GroupReagin Ab [Presence] in Serum by RPR 2018-08-30 00:00:00 Test Item Value Reference Range Interpretation Comments Reagin Ab [Presence] in Serum by nonreactive nonreactive RPR (test code = 97596-8) [facility] GroupGlucose [Mass/volume] in Capillary [id number] 14:18:00 Test Item Value Reference Range Interpretation Comments GLU (test code = GLU) 50mg/dL [facility] GroupGlucose [Mass/volume] in Capillary [id number] 14:18:00 Test Item Value Reference Range Interpretation Comments GLU (test code = GLU) 50mg/dL [facility] GroupGlucose [Mass/volume] in Capillary [id number] 14:18:00 Test Item Value Reference Range Interpretation Comments GLU (test code = GLU) 50mg/dL [facility]Urinal[facility] macro (dipstick) panel - [id number] 14:02:40 Test Item Value Reference Range Interpretation Comments Leukocytes (test code = Leukocytes) Trace Nitrite (test code = Nitrite) negative Urobilinogen (test code = .2 Urobilinogen) Protein (test code = Protein) Negative pH (test code = pH) 6.0 Blood (test code = Blood) Negative Specific [place] (test code = 1.015 Specific [place]) Ketone (test code = Ketone) Negative Bilirubin (test code = Bilirubin) Negative Glucose (test code = Glucose) Negative Appearance (test code = Appearance) Clear Color (test code = Color) Yellow [facility] CountyUrinalysis macro (dipstick) panel - [id number] 14:02:40 Test Item Value Reference Range Interpretation Comments Leukocytes (test code = Leukocytes) Trace Nitrite (test code = Nitrite) negative Urobilinogen (test code = .2 Urobilinogen) Protein (test code = Protein) Negative pH (test code = pH) 6.0 Blood (test code = Blood) Negative Specific [place] (test code = 1.015 Specific [place]) Ketone (test code = Ketone) Negative Bilirubin (test code = Bilirubin) Negative Glucose (test code = Glucose) Negative Appearance (test code = Appearance) Clear Color (test code = Color) Yellow [facility] CountyUr[facility]ysis macro (dipstick) panel - [id number] 14:02:40 Test Item Value Reference Range Interpretation Comments Leukocytes (test code = Leukocytes) Trace Nitrite (test code = Nitrite) negative Urobilinogen (test code = .2 Urobilinogen) Protein (test code = Protein) Negative pH (test code = pH) 6.0 Blood (test code = Blood) Negative Specific [place] (test code = 1.015 Specific [place]) Ketone (test code = Ketone) Negative Bilirubin (test code = Bilirubin) Negative Glucose (test code = Glucose) Negative Appearance (test code = Appearance) Clear Color (test code = Color) Yellow [facility] County[facility]ysis complete panel - [id number] 01:45:00 Test Item Value Reference Range Interpretation Comments Color of Urine by Auto (test colorless code = 38780-6) Appearance of Urine (test code clear clear = 5767-9) Glucose [Presence] in Urine by negative negative Automated test strip (test code = 79472-0) Bilirubin.total [Mass/volume] negative negative in Urine (test code = 1977-) Ketones [Mass/volume] in Urine negative negative by Automated test strip (test code = 97588-2) Specific gravity of Urine by 1.004 1.003-1.030 Automated test strip (test code = 34738-9) blood urine (test code = blood =2 negative H urine) pH of Urine (test code = 6.500 5-9 2756-5) protein urine (UA) (test code = negative negative protein urine (UA)) Urobilinogen [Presence] in normal 0.2-1.0 Urine (test code = 66420-7) Nitrite [Presence] in Urine by negative negative Test strip (test code = 5802-4) Leukocyte esterase [Presence] negative negative in Urine by Automated test strip (test code = 10107-3) Erythrocytes [#/volume] in <1 0-5 Urine by Automated count (test code = 798-9) Leukocytes [#/area] in Urine =1-5 0-5 sediment by Automated count (test code = 74090-0) Epithelial cells [Presence] in =1-5 0-5 Urine sediment by Light microscopy (test code = 90907-5) Bacteria identified in Urine by none detected none detect Culture (test code = 630-4) Casts [#/area] in Urine none detected none detect sediment by Automated count (test code = 93131-9) urine culture added? (test code no = urine culture added?) [facility] GroupUr[facility] complete panel - [id number] 01:45:00 Test Item Value Reference Range Interpretation Comments Color of Urine by Auto (test colorless code = 36422-0) Appearance of Urine (test code clear clear = 5767-9) Glucose [Presence] in Urine by negative negative Automated test strip (test code = 71103-8) Bilirubin.total [Mass/volume] negative negative in Urine (test code = 1977-08) Ketones [Mass/volume] in Urine negative negative by Automated test strip (test code = 37373-1) Specific gravity of Urine by 1.004 1.003-1.030 Automated test strip (test code = 29313-2) blood urine (test code = blood =2 negative H urine) pH of Urine (test code = 6.500 5-9 2756-5) protein urine (UA) (test code = negative negative protein urine (UA)) Urobilinogen [Presence] in normal 0.2-1.0 Urine (test code = 47002-2) Nitrite [Presence] in Urine by negative negative Test strip (test code = 5802-4) Leukocyte esterase [Presence] negative negative in Urine by Automated test strip (test code = 06826-3) Erythrocytes [#/volume] in <1 0-5 Urine by Automated count (test code = 798-9) Leukocytes [#/area] in Urine =1-5 0-5 sediment by Automated count (test code = 13697-9) Epithelial cells [Presence] in =1-5 0-5 Urine sediment by Light microscopy (test code = 62875-3) Bacteria identified in Urine by none detected none detect Culture (test code = 630-4) Casts [#/area] in Urine none detected none detect sediment by Automated count (test code = 32154-4) urine culture added? (test code no = urine culture added?) [facility] CountyChlamydia trachomatis+Neisseria gonorrhoeae DNA [Presence] in Cervix by Probe and target amplification [id number] 11:47:00 ResultsMatagoMississippi Baptist Medical CenterGlucose [Mass/volume] in Capillary [id number] 09:28:11 Test Item Value Reference Range Interpretation Comments GLU (test code = GLU) 107 [facility] CountyGlucose [Mass/volume] in Capillary [id number] 09:28:11 Test Item Value Reference Range Interpretation Comments GLU (test code = GLU) 107 [facility] CountyUrinalysis macro (dipstick) panel - [id number] 09:25:55 Test Item Value Reference Range Interpretation Comments Leukocytes (test code = Leukocytes) Negative Nitrite (test code = Nitrite) negative Urobilinogen (test code = .2 Urobilinogen) Protein (test code = Protein) Negative pH (test code = pH) 7.0 Blood (test code = Blood) Negative Specific [place] (test code = 1.020 Specific [place]) Ketone (test code = Ketone) Negative Bilirubin (test code = Bilirubin) Negative Glucose (test code = Glucose) Negative Appearance (test code = Appearance) Clear Color (test code = Color) Yellow [facility] CountyUrinalysis macro (dipstick) panel - [id number] 09:25:55 Test Item Value Reference Range Interpretation Comments Leukocytes (test code = Leukocytes) Negative Nitrite (test code = Nitrite) negative Urobilinogen (test code = .2 Urobilinogen) Protein (test code = Protein) Negative pH (test code = pH) 7.0 Blood (test code = Blood) Negative Specific [place] (test code = 1.020 Specific [place]) Ketone (test code = Ketone) Negative Bilirubin (test code = Bilirubin) Negative Glucose (test code = Glucose) Negative Appearance (test code = Appearance) Clear Color (test code = Color) Yellow [facility] CountyMicroscopic observation [Identifier] in Cervix by Cyto stain.thin [id number] 00:00:00ResultsMatagoMississippi Baptist Medical CenterUrinalysis macro (dipstick) panel - [id number] 14:46:39 Test Item Value Reference Range Interpretation Comments Leukocytes (test code = Large Leukocytes) Nitrite (test code = Nitrite) negative Urobilinogen (test code = .2 Urobilinogen) Protein (test code = Protein) 30 pH (test code = pH) 7.0 Blood (test code = Blood) Large Specific [place] (test code = 1.030 Specific [place]) Ketone (test code = Ketone) Moderate Bilirubin (test code = Negative Bilirubin) Glucose (test code = Glucose) Negative Appearance (test code = Slightly Cloudy Appearance) Color (test code = Color) Yellow [facility] CountyUrinalysis macro (dipstick) panel - [id number] 14:46:39 Test Item Value Reference Range Interpretation Comments Leukocytes (test code = Large Leukocytes) Nitrite (test code = Nitrite) negative Urobilinogen (test code = .2 Urobilinogen) Protein (test code = Protein) 30 pH (test code = pH) 7.0 Blood (test code = Blood) Large Specific [place] (test code = 1.030 Specific [place]) Ketone (test code = Ketone) Moderate Bilirubin (test code = Negative Bilirubin) Glucose (test code = Glucose) Negative Appearance (test code = Slightly Cloudy Appearance) Color (test code = Color) Yellow [facility] CountyGlucose [Mass/volume] in Capillary [id number] 14:45:12 Test Item Value Reference Range Interpretation Comments GLU (test code = GLU) 178 [facility] CountyGlucose [Mass/volume] in Capillary [id number] 14:45:12 Test Item Value Reference Range Interpretation Comments GLU (test code = GLU) 178 [facility] CountyCBC W Auto Differential panel - [id number] 02:30:00 Test Item Value Reference Range Interpretation Comments white blood count (test code = 7.8 K/uL 4.0-11.5 white blood count) red blood count (test code = red 4.71 M/uL 3.80-5.20 blood count) Hemoglobin [Mass/volume] in Blood 12.2 g/dL 10.5-15.7 (test code = 718-7) hematocrit (test code = hematocrit) 38.9 % 34.0-50.0 Erythrocyte mean corpuscular volume 82.5 fL 78-98 [Entitic volume] (test code = 42648-1) Erythrocyte mean corpuscular 25.9 pg 26.2-33.4 L hemoglobin [Entitic mass] (test code = 87650-1) mean corpuscular HGB conc (test 31.5 g/dL 31.5-36.2 code = mean corpuscular HGB conc) red cell distribution width (test 15.9 % 11.5-15.5 H code = red cell distribution width) Platelets [#/volume] in Blood (test 174 K/uL 137-338 code = 36306-0) Platelet mean volume [Entitic 9.8 fL 8.4-11.8 volume] in Blood (test code = 75926-9) Neutrophils.band form/100 67.6 % 44.4-80.1 leukocytes in Blood (test code = 96740-5) Lymphocytes/100 leukocytes in Body 23.7 % 10.0-50.0 fluid (test code = 67000-3) Monocytes/100 leukocytes in Blood 6.4 % 3.6-12.04 by Automated count (test code = 5905-5) Eosinophils/100 leukocytes in Blood 1.8 % 0.0-5.41 by Automated count (test code = 713-8) Basophils/100 leukocytes in Blood 0.6 % 0.0-0.79 by Automated count (test code = 706-2) [facility] GroupHemoglobin A1c [Mass/volume] in [id number] 02:30:00 Test Item Value Reference Range Interpretation Comments Hemoglobin A1c in Blood (test code = 6.9 % 4.0-6.0 H 99250-1) [facility] CountyRubella virus IgG Ab [Titer] in [id number] 02:30:00 Test Item Value Reference Range Interpretation Comments Rubella virus IgG Ab 146.2 [IU]/mL [Units/volume] in Serum by Immunoassay (test code = 5334-8) [facility] GroupHIV 1+2 Ab [Presence] in [id number] 02:30:00HIV P24 AgHIV-1/2 AbPatient'S Choice [facility] Of [facility] CountyABO & Rh group [Type] in [id number] 02:30:00 Test Item Value Reference Range Interpretation Comments Rh [Type] in Blood (test code = 4+ 60303-8) ABO and Rh group panel - Blood A positive (test code = 43124-7) [facility] CountyBlood group antibody screen [Presence] in Serum or Plasma 2018-05-02 02:30:00 Test Item Value Reference Range Interpretation Comments Blood group antibody screen negative [Presence] in Serum or Plasma (test code = 890-4) [facility] GroupBacteria identified in Urine by [id number] 02:30:00Bacteria Ur CultKell West Regional Hospital GroupReagin Ab [Presence] in Serum by [id number] 02:30:00 Test Item Value Reference Range Interpretation Comments Reagin Ab [Presence] in Serum by nonreactive nonreactive RPR (test code = 00593-8) [facility] CountyHepatitis B virus surface Ag [Presence] in Serum 2018-05-02 02:30:00 Test Item Value Reference Range Interpretation Comments .hepatitis B surface antigen (test negative negative code = .hepatitis B surface antigen) [facility] CountyGLUCOMETER GLUCOSE- LAB USE [id number] 17:10:00 Test Item Value Reference Range Interpretation Comments GLUCOMETER (test 116 mg/dL 70-100 H DAILY MAINT ENANCEMeter code = GM) ID: [id number] perator: [id number] MYLA HERNANDEZ
[2020-03-23 13:21] LABS: Urine RBC <5 /HPF (NONE SEEN)
[2020-03-23 13:22] LABS: Urine Bacteria LOADED /HPF (<20); Urine Mucus 3+ /HPF (NONE SEEN)
--- NOTE | 2020-03-23 13:27 | ER ---
Nurse's Notes [facility] Name: Annie Mora Age: 25 yrs Sex: Female : 1995 Arrival Date: 03/23/2020 Time: 10:59 Bed 16 Private MD: Diagnosis: Urinary tract infection, site not specified Presentation: 03/23 11:07 Chief complaint: Patient states: "my butt feels swollen and it makes it hard to poop". ss Coronavirus screen: At this time, unable to obtain information related to travel outside the [place] At this time, the client does not indicate any symptoms associated with coronavirus-19. Ebola Screen: Patient negative for fever greater than or equal to 101.5 degrees Fahrenheit, and additional compatible Ebola Virus Disease symptoms Patient denies exposure to infectious person. Patient denies travel to an Ebola-affected area in the 21 days before illness onset. No symptoms or risks identified at this time. Initial Sepsis Screen: Does the patient meet any 2 criteria? No. Patient's initial sepsis screen is negative. Does the patient have a suspected source of infection? No. Patient's initial sepsis screen is negative. Risk Assessment: Do you want to hurt yourself or someone else? Patient reports no desire to harm self or others. Onset of symptoms was March 21, 2020. 11:07 Method Of Arrival: Ambulatory ss 11:07 Acuity: THADDEUS 3 ss Triage Assessment: 11:11 General: Appears in no apparent distress. uncomfortable, Behavior is calm, cooperative. ss Pain: Complains of pain in anus Pain does not radiate. Pain currently is 8 out of 10 on a pain scale. at worst was 8 out of 10 on a pain scale. 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 - Social history:: Smoking status: Patient denies any tobacco usage or history of. Screenin:12 Abuse screen: Denies threats or abuse. Nutritional screening: No deficits noted. tw2 Tuberculosis screening: No symptoms or risk factors identified. Fall Risk None identified. Assessment: 12:12 General: Appears in no apparent distress. obese, well groomed, Behavior is calm, tw2 cooperative, appropriate for age. Neuro: Level of Consciousness is awake, alert, obeys commands, Oriented to person, place, time, situation. Cardiovascular: Patient's skin is warm and dry. Respiratory: Airway is patent Respiratory effort is even, unlabored, Respiratory pattern is regular, symmetrical. GI: Abd is soft X 4 quads. : No signs and/or symptoms were reported regarding the genitourinary system. EENT: No signs and/or symptoms were reported regarding the EENT system. Derm: No signs and/or symptoms reported regarding the dermatologic system. Musculoskeletal: Range of motion: intact in all extremities. 12:40 Reassessment: Patient appears in no apparent distress at this time. No changes from tw2 previously documented assessment. Patient and/or family updated on plan of care and expected duration. Pain level reassessed. Patient is alert, oriented x 3, equal unlabored respirations, skin warm/dry/pink. 13:49 Reassessment: Patient appears in no apparent distress at this time. No changes from tw2 previously documented assessment. Patient and/or family updated on plan of care and expected duration. Pain level reassessed. Patient is alert, oriented x 3, equal unlabored respirations, skin warm/dry/pink. Vital Signs: 11:07 BP 138 / 89; Pulse 79; Resp 18; Temp 97.7; Pulse Ox 100% ; Weight 95.25 kg; Height 4 ss ft. 10 in. (147.32 cm); Pain 8/10; 12:40 BP 124 / 71; Pulse 84; Resp 17; Temp 98.4; Pulse Ox 100% on R/A; tw2 13:45 BP 127 / 85; Pulse 77; Resp 17; Pulse Ox 99% on R/A; tw2 11:07 Body Mass Index 43.89 (95.25 kg, 147.32 cm) ED Course: 10:59 Patient arrived in ED. ds1 11:09 Triage completed. ss 11:11 Arm band placed on right wrist. ss 11:12 Madie Guerrero FNP-C is [facility]. kb 11:12 Ulysses Gipson MD is Attending Physician. kb 12:12 Bed in low position. Call light in reach. tw2 12:12 No provider procedures requiring assistance completed. IV discontinued, intact, tw2 bleeding controlled, No redness/swelling at site. Pressure dressing applied. 12:14 Judy Quintero, RN is Primary Nurse. tw2 12:39 Urine Microscopic Only Sent. tw2 Administered Medications: No medications were administered Outcome: 12:12 Discharged to home ambulatory. tw2 12:12 Condition: stable 12:12 Discharge instructions given to patient, Instructed on discharge instructions, follow up and referral plans. medication usage, Demonstrated understanding of instructions, follow-up care, medications, Prescriptions given X 1. 13:26 Discharge ordered by . kb 13:51 Patient left the ED. tw2 Signatures: Madie Guerrero FNP-C FNP-Ckb Sanford, Demi ds1 Makayla Read RN RN Judy Quintero RN RN tw2
--- NOTE | 2020-03-23 13:27 | EDPHYS ---
Physician Documentation [facility] Name: Annie Mora Age: 25 yrs Sex: Female : 1995 Arrival Date: 03/23/2020 Time: 10:59 Bed 16 Private MD: ALFONSO Physician Ulysses Gipson HPI: 03/23 13:37 This 25 yrs old Female presents to ER via Ambulatory with complaints of kb Constipation - Pain/Difficulty, 10 Wks Preg. 13:37 The patient presents to the emergency department with pain in the rectal area, that is kb moderate. Onset: The symptoms/episode began/occurred 2 day(s) ago. Context: the patient has no known special context relating to the rectal area complaint(s). Modifying factors: The symptoms are alleviated by nothing, The symptoms are aggravated by bowel movement. Associate signs and symptoms: The patient has no apparent associated signs or symptoms. The patient has not experienced similar symptoms in the past. The patient has not recently seen a physician. Pt reports rectal pain with BM. States she felt the area after her last bm and it felt like something was protruding out. . 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 - Social history:: Smoking status: Patient denies any tobacco usage or history of. ROS: 13:36 Constitutional: Negative for fever, chills, and weight loss, Cardiovascular: Negative kb for chest pain, palpitations, and edema, Respiratory: Negative for shortness of breath, cough, wheezing, and pleuritic chest pain, Back: Negative for injury and pain, : Negative for injury, bleeding, discharge, and swelling, MS/Extremity: Negative for injury and deformity, Skin: Negative for injury, rash, and discoloration, Neuro: Negative for headache, weakness, numbness, tingling, and seizure. 13:36 Abdomen/GI: Positive for rectal pain. Exam: 13:36 Constitutional: This is a well developed, well nourished patient who is awake, alert, kb and in no acute distress. Head/Face: Normocephalic, atraumatic. Chest/axilla: Normal chest wall appearance and motion. Nontender with no deformity. No lesions are appreciated. Cardiovascular: Regular rate and rhythm with a normal S1 and S2. No gallops, murmurs, or rubs. Normal PMI, no JVD. No pulse deficits. Respiratory: Lungs have equal breath sounds bilaterally, clear to auscultation and percussion. No rales, rhonchi or wheezes noted. No increased work of breathing, no retractions or nasal flaring. Abdomen/GI: Soft, non-tender, with normal bowel sounds. No distension or tympany. No guarding or rebound. No evidence of tenderness throughout. Skin: Warm, dry with normal turgor. Normal color with no rashes, no lesions, and no evidence of cellulitis. MS/ Extremity: Pulses equal, no cyanosis. Neurovascular intact. Full, normal range of motion. Neuro: Awake and alert, GCS 15, oriented to person, place, time, and situation. Cranial nerves II-XII grossly intact. Motor strength 5/5 in all extremities. Sensory grossly intact. Cerebellar exam normal. Normal gait. 13:36 Abdomen/GI: Rectal exam: rectal tone normal, hemorrhoid(s), are not appreciated, tenderness, that is mild. Vital Signs: 11:07 BP 138 / 89; Pulse 79; Resp 18; Temp 97.7; Pulse Ox 100% ; Weight 95.25 kg; Height 4 ss ft. 10 in. (147.32 cm); Pain 8/10; 12:40 BP 124 / 71; Pulse 84; Resp 17; Temp 98.4; Pulse Ox 100% on R/A; tw2 13:45 BP 127 / 85; Pulse 77; Resp 17; Pulse Ox 99% on R/A; tw2 11:07 Body Mass Index 43.89 (95.25 kg, 147.32 cm) ss MDM: 11:12 Patient medically screened. kb 13:25 Data reviewed: vital signs, nurses notes. Data interpreted: Pulse oximetry: on room air kb is 100 %. Interpretation: normal. Counseling: I had a detailed discussion with the patient and/or guardian regarding: the historical points, exam findings, and any diagnostic results supporting the discharge/admit diagnosis, the need for outpatient follow up, an OB/Gyne specialist, to return to the emergency department if symptoms worsen or persist or if there are any questions or concerns that arise at home. 03/23 12:38 Order name: Urine Microscopic Only kb 03/23 12:39 Order name: Urine Microscopic Only; Complete Time: 13:25 EDMS 03/23 12:38 Order name: Urine Test (obtain specimen); Complete Time: 12:39 kb 03/23 12:38 Order name: Urine Dipstick-Ancillary (obtain specimen); Complete Time: 12:39 kb 03/23 12:47 Order name: Urine Dipstick--Ancillary (enter results); Complete Time: 13:36 bd 03/23 12:47 Order name: Urine --Ancillary (enter results); Complete Time: 13:36 bd Administered Medications: No medications were administered Disposition: 18:39 Co-signature as Attending Physician, Ulysses Gipson MD I agree with the assessment and micheal plan of care. Disposition: 03/23/20 13:26 Discharged to Home. Impression: Urinary tract infection, site not specified. - Condition is Stable. - Discharge Instructions: and Urinary Tract Infection. - Prescriptions for Macrobid 100 mg Oral Capsule - take 1 capsule by ORAL route every 12 hours for 10 days; 20 capsule. - Medication Reconciliation Form, Thank You Letter, Antibiotic Education, Prescription Opioid Use, Work release form form. - Follow up: Emergency Department; When: As needed; Reason: Worsening of condition. Follow up: Private Physician; When: 2 - 3 days; Reason: Recheck today's complaints, Continuance of care, Re-evaluation by your physician. Signatures: Dispatcher [employer] EDMadie Moon, KENNETH-Ulysses Wilkins MD MD cha Smirch, Shelby, RN RN Judy Dodd RN RN tw2 Corrections: (The following items were deleted from the chart) 13:51 13:26 03/23/2020 13:26 Discharged to Home. Impression: Urinary tract infection, site tw2 not specified. Condition is Stable. Forms are Medication Reconciliation Form, Thank You Letter, Antibiotic Education, Prescription Opioid Use. Follow up: Emergency Department; When: As needed; Reason: Worsening of condition. Follow up: Private Physician; When: 2 - 3 days; Reason: Recheck today's complaints, Continuance of care, Re-evaluation by your physician. kb
[2020-03-23 13:33] LABS: Urine Blood 3+ (NEG); Urine Glucose 1+ (NEG); Urine Protein NEGATIVE (NEG); Urine Specific Gravity >1.030 (1.005-1.030); Urine pH 5.5 (5.0-7.0)
[2020-03-23 13:59] VITALS: TEMP 98.4
[2020-03-23 14:03] VITALS: BP 127/85; O2SAT 99
== END 2020-03-23 13:51 | disposition home or self-care (01) ==
LOC: ER 10:57
DX: O23.41 Unspecified infection of urinary tract in pregnancy, first trimester (principal); O24.911 Unspecified diabetes mellitus in pregnancy, first trimester; Z3A.10 10 weeks gestation of pregnancy
CPT/HCPCS: 81003; 81015; 81025; 99283